=== PATIENT | female | born 1970 | race Caucasian/White ===

== ENCOUNTER 2019-02-08 05:39 | Inpatient (IN) | payer MEDICAID ==
[2019-02-08 06:24] LABS: ABSOLUTE BASOPHILS # (AUTO) 0.3 10^3/uL (0.0-0.2); ABSOLUTE LYMPHOCYTES (AUTO) 0.8 10^3/uL (0.5-4.7); ABSOLUTE MONOCYTES (AUTO) 0.6 10^3/uL (0.1-1.4); ABSOLUTE NEUT (AUTO) 13.2 10^3/uL (1.7-8.2); BASOPHILS % (AUTO) 1.7 % (0-2); EOSINOPHILS % (AUTO) 0.1 % (0-6); HEMATOCRIT 35.5 % (36.0-47.0); HEMOGLOBIN 11.3 g/dL (12.0-15.5); LYMPHOCYTES % (AUTO) 5.2 % (13-45); MEAN CORPUSCULAR HEMOGLOBIN 29.2 pg (27.0-33.4); MEAN CORPUSCULAR HGB CONC 31.8 g/dL (32.0-36.0); MEAN CORPUSCULAR VOLUME 92 fl (80-97); MONOCYTES % (AUTO) 4.3 % (3-13); PLATELET COUNT 354 10^3/uL (150-450); RED BLOOD COUNT 3.85 10^6/uL (3.72-5.28); RED CELL DISTRIBUTION WIDTH 15.4 % (11.5-14.0); SEGMENTED NEUTROPHILS % (AUTO) 88.7 % (42-78); TOTAL CELLS COUNTED % (AUTO) 100 %; WHITE BLOOD COUNT 14.9 10^3/uL (4.0-10.5)
[2019-02-08 06:38] LABS: VENOUS BLOOD BASE EXCESS -4.9 mmol/L; VENOUS BLOOD HCO3 20.5 mmol/L (20-32); VENOUS BLOOD PCO2 39.5 mmHg (35-63); VENOUS BLOOD PH 7.33 (7.30-7.42)
--- NOTE | 2019-02-08 06:41 | EKG REPORT ---
SEVERITY:- BORDERLINE ECG - SINUS TACHYCARDIA LOW VOLTAGE WITH RIGHT AXIS DEVIATION : Confirmed by: Merrick Cain MD 08-Feb-2019 06:40:19
[2019-02-08 07:05] LABS: APPEARANCE,URINE CLEAR; BILIRUBIN,URINE NEGATIVE (NEGATIVE); COLOR,URINE YELLOW; GLUCOSE, URINE >=500 mg/dL (NEGATIVE); KETONES,URINE TRACE mg/dL (NEGATIVE); LEUKOCYTE ESTERASE,URINE NEGATIVE (NEGATIVE); NITRITE,URINE NEGATIVE (NEGATIVE); PROTEIN,URINE >=500 mg/dL (NEGATIVE); URINE SPECIFIC GRAVITY 1.018; UROBILINOGEN,URINE NEGATIVE mg/dL (<2.0)
[2019-02-08 07:11] LABS: ALANINE AMINOTRANSFERASE 36 U/L (9-52); ALBUMIN 2.4 g/dL (3.5-5.0); ALKALINE PHOSPHATASE 137 U/L (38-126); ANION GAP 14 (5-19); ASPARTATE AMINO TRANSFERASE 20 U/L (14-36); BILIRUBIN,DIRECT 0.4 mg/dL (0.0-0.4); BILIRUBIN,TOTAL 0.4 mg/dL (0.2-1.3); BLOOD UREA NITROGEN 36 mg/dL (7-20); CALCIUM 8.4 mg/dL (8.4-10.2); CARBON DIOXIDE 19 mmol/L (22-30); CHLORIDE 104 mmol/L (98-107); POTASSIUM 4.4 mmol/L (3.6-5.0); SODIUM 136.7 mmol/L (137-145); TOTAL PROTEIN 4.7 g/dL (6.3-8.2)
[2019-02-08 07:22] LABS: GLUCOSE 550 mg/dL (75-110)
[2019-02-08] MEDS ORDERED: ZIPRASIDONE MESYLATE INJ/PF 20 MG SDV IM ONE (07:24)
[2019-02-08] MEDS ORDERED: NORMAL SALINE 500 ML IV ONE (07:30)
[2019-02-08] MEDS: INSULIN REG, HUMAN 100 UNIT/ML 3 ML VIAL (PYX) IV ONE ×4 (08:00→13:26)
--- NOTE | 2019-02-08 08:45 | RADIOLOGY REPORT (SQ) ---
EXAM DESCRIPTION: CHEST SINGLE VIEW COMPLETED DATE/TIME: 02/08/2019 8:31 am REASON FOR STUDY: AMS COMPARISON: None. EXAM PARAMETERS: NUMBER OF VIEWS: One view. TECHNIQUE: Single frontal radiographic view of the chest acquired. RADIATION DOSE: NA LIMITATIONS: None. FINDINGS: LUNGS AND PLEURA: No opacities, masses or pneumothorax. No pleural effusion. MEDIASTINUM AND HILAR STRUCTURES: No masses. Contour normal. HEART AND VASCULAR STRUCTURES: Borderline cardiomegaly. Mild vascular prominence. BONES: No acute findings. HARDWARE: Central line. OTHER: No other significant finding. IMPRESSION: BORDERLINE CARDIOMEGALY WITH MILD VASCULAR PROMINENCE. TECHNICAL DOCUMENTATION: JOB ID: [id number] [employer]- All Rights Reserved Reading location - IP/workstation name: [email or web address]
--- NOTE | 2019-02-08 09:03 | RADIOLOGY REPORT (SQ) ---
EXAM DESCRIPTION: CT HEAD WITHOUT COMPLETED DATE/TIME: 02/08/2019 8:52 am REASON FOR STUDY: AMS COMPARISON: None. TECHNIQUE: Axial images acquired through the brain without intravenous contrast. Images reviewed wi th bone, brain and subdural windows. Additional sagittal and coronal reconstructions were generated. Images stored on PACS. All CT scanners at this facility use dose modulation, iterative reconstruction, and/or weight based d osing when appropriate to reduce radiation dose to as low as reasonably achievable (ALARA). [facility]: Dose Right [facility]: CareDose [facility]: Dose Right [facility]: Teradose 4D [facility]: [employer] RADIATION DOSE: CT Rad equipment meets quality standard of care and radiation dose reduction techniq ues were employed. CTDIvol: 53.2 mGy. DLP: 1044 mGy-cm. mGy. LIMITATIONS: None. FINDINGS: VENTRICLES: Normal size and contour. CEREBRUM: No masses. No hemorrhage. No midline shift. No evidence for acute infarction. Normal gra y/white matter differentiation. No areas of low density in the white matter. CEREBELLUM: No masses. No hemorrhage. No alteration of density. No evidence for acute infarction. EXTRAAXIAL SPACES: No fluid collections. No masses. ORBITS AND GLOBE: No intra- or extraconal masses. Normal contour of globe without masses. CALVARIUM: No fracture. PARANASAL SINUSES: No fluid or mucosal thickening. SOFT TISSUES: No mass or hematoma. OTHER: No other significant finding. IMPRESSION: NORMAL BRAIN CT WITHOUT CONTRAST. EVIDENCE OF ACUTE STROKE: NO. COMMENT: Quality ID # [id number]: Final reports with documentation of one or more dose reduction techniques (e.g., Automated exposure control, adjustment of the mA and/or kV according to patient size, use of iterative reconstruction technique) TECHNICAL DOCUMENTATION: JOB ID: [id number] [employer]- All Rights Reserved Reading location - IP/workstation name: [email or web address]
--- NOTE | 2019-02-08 09:25 | RADIOLOGY REPORT (SQ) ---
EXAM DESCRIPTION: CT CHEST WITHOUT COMPLETED DATE/TIME: 02/08/2019 8:52 am REASON FOR STUDY: upper extremity and facial edema COMPARISON: None. TECHNIQUE: CT scan performed of the chest without intravenous contrast. Images reviewed with lung, soft tissue and bone windows. Reconstructed coronal and sagittal MPR images reviewed. All images st ored on PACS. All CT scanners at this facility use dose modulation, iterative reconstruction, and/or weight based d osing when appropriate to reduce radiation dose to as low as reasonably achievable (ALARA). [facility]: Dose Right [facility]: CareDose [facility]: Dose Right [facility]: Teradose 4D [facility]: [employer] RADIATION DOSE: CT Rad equipment meets quality standard of care and radiation dose reduction techniq ues were employed. CTDIvol: 14.4 mGy. DLP: 570 mGy-cm. mGy. LIMITATIONS: No technical limitations. FINDINGS: LUNGS AND PLEURA: Small pleural effusions bilaterally, volume less than 500 cc. Mild inte rstitial edema interlobular septal thickening. No consolidation. HILAR AND MEDIASTINAL STRUCTURES: No identified masses or abnormal nodes. No obvious aneurysm. HEART AND VASCULAR STRUCTURES: Cardiomegaly. No aneurysm. No pericardial effusion. UPPER ABDOMEN: Body wall edema. Limited exam. THYROID AND OTHER SOFT TISSUES: No masses. No adenopathy. BONES: No significant finding. HARDWARE: None in the chest. OTHER: Right central line tip in the cavoatrial junction. IMPRESSION: Pulmonary edema and anasarca. No consolidation. TECHNICAL DOCUMENTATION: JOB ID: [id number] Quality ID # [id number]: Final reports with documentation of one or more dose reduction techniques (e.g., Au tomated exposure control, adjustment of the mA and/or kV according to patient size, use of iterative reconstruction technique) 2010 [employer]- All Rights Reserved Reading location - IP/workstation name: [email or web address]
[2019-02-08 10:07] LABS: URINE AMPHETAMINES SCREEN NEGATIVE; URINE BARBITURATES SCREEN NEGATIVE; URINE BENZODIAZEPINES SCREEN NEGATIVE; URINE COCAINE SCREEN NEGATIVE; URINE MARIJUANA (THC) SCREEN NEGATIVE; URINE METHADONE SCREEN NEGATIVE; URINE PHENCYCLIDINE SCREEN NEGATIVE
[2019-02-08] MEDS ORDERED: GLUCAGON,HUMAN RECOMB 1 MG INJ IM PRN ×2 (12:00→17:33)
[2019-02-08] MEDS ORDERED: INSULIN, REGULAR 100 UNIT/100 ML NORMAL SALINE IV PRN ×2 (12:00)
[2019-02-08] MEDS ORDERED: DEXTROSE 40% GEL 15 GM TUBE PO PRN ×3 (12:00→17:33)
[2019-02-08] MEDS ORDERED: DEXTROSE 50%-WATER SYRINGE 25 GM/50 ML DOSE IV PRN (12:00)
[2019-02-08] MEDS ORDERED: DEXTROSE 40% GEL 15 GM TUBE X 2 PO PRN (12:00)
[2019-02-08] MEDS ORDERED: DEXTROSE 50%-WATER SYRINGE 12.5 GM/25 ML DOSE IV PRN (12:00)
--- NOTE | 2019-02-08 12:12 | ER Document Report ---
ED General - General Stated Complaint: COMBATIVE Time Seen by Provider: 02/08/19 05:48 TRAVEL OUTSIDE OF THE [place] IN LAST 30 DAYS: No - HPI Notes: Patient is a 48-year-old female who presents to the emergency department. She is a known history of ESRD, on dialysis Friday and Friday, as well as diabetes. She has not been seen here in our facility in the past. Her friend called 911 because of altered mental status. I did not get this history until later. Evidently the patient's friend states she was acting normally on Friday night. She actually walked 2 miles, was compliant with her medications. Yesterday the patient friend tried to wake her. She was unable to wake her. She seemed to be groaning intermittently. She laid down throughout the course of the day. She seemed to be getting edematous so she propped her up. When she continued to act this way this morning she called 911. According to the friend, she has not missed any dialysis. The patient did not get any insulin yesterday as the patient's friend was concerned she could become hypoglycemic and not be responsive enough to eat or drink. No known traumas. - Related Data Allergies/Adverse Reactions: shellfish derived Allergy (Verified 02/08/19 11:25) Past Medical History - General Information source: Friend - Social History Smoking Status: Current Every Day Smoker Family History: Reviewed & Not Pertinent Patient has suicidal ideation: No Patient has homicidal ideation: No - Past Medical History Cardiac Medical History: Reports: Hx Hypertension Neurological Medical History: Reports: Hx Cerebrovascular Accident Endocrine Medical History: Reports: Hx Diabetes Mellitus Type 2 Renal/ Medical History: Reports: Hx End Stage Renal Disease. Denies: Hx Peritoneal Dialysis Review of Systems - Review of Systems -: Yes ROS unobtainable due to patient's medical condition Physical Exam - Vital signs Vitals: Pulse Ox 98 02/08/19 06:05 - Notes Notes: Patient is a 48-year-old female who appears much older than her stated age. She is restrained when I come into the room. She is intermittently combative and yells out and moans. Head is normocephalic. She does have significant periorbital and scleral edema. Pupils are equal and round, reactive to light although slightly sluggish. Oral mucosa slightly dry. Heart is tachycardic with normal S1-S2, lungs are clear to oscillation bilaterally. Abdomen soft appears nontender with no active bowel sounds. Patient has pitting edema to the hands, chest wall, abdominal wall. She has no lower extremity edema. Patient has no gross facial asymmetry. She moves all 4 extremities spontaneously. She will follow commands intermittently. GCS is 10. Course - Re-evaluation Re-evalutation: 02/08/19 12:09 Patient presented emergency department for evaluation. She had initial labs as placed by the nurse practitioner. Additional labs are ordered. Laboratory investigations were remarkable for a significantly elevated glucose, only mildly low bicarb. Her venous pH was normal. Her serum osmolality was ordered and found to be high. I am concerned about the possibility of HHS in this patient. I am concerned also, however, about giving her too many fluids in light of this being a dialysis patient. She is due for dialysis today. She was given a 500 cc bolus. She was started on insulin drip. She was administered Geodon in an effort to calm her so the CT scans of the head to be ordered. Shortly after the need for restraints was reassessed and the patient was able to have them removed. Finally a friend came to the department was able to fill in the blanks in some of her history. Chest x-ray was ordered and found to be largely unremarkable as well. Because her edema seemed to be localized to the upper half of the body, I was concerned about the possibility of some sort of mass- effect decreasing her circulation. CT scan of the chest was ordered and again showed only some edema. Patient is maintained on the insulin drip. She is remained stable. I spoke with Dr. Dumont, who accepted the patient, and asked that I speak with CONNER Baker regarding this admission. She asked that I verify that we had a dialysis bed. I was finally able to speak to Dr. Alexander, who verified that he could see the patient in consult for dialysis. I conveyed this information to the nurse practitioner, who will admit the patient for further care. 02/08/19 12:12 - Vital Signs Vital signs: Temp Pulse Resp BP Pulse Ox 97.6 F 16 155/72 H 97 02/08/19 09:01 02/08/19 09:01 02/08/19 09:01 02/08/19 09:01 - Laboratory Result Diagrams: 02/08/19 06:11 02/08/19 06:11 Laboratory results interpreted by me: 02/08/19 02/08/19 02/08/19 06:11 06:11 06:11 WBC 14.9 H Hgb 11.3 L Hct 35.5 L MCHC 31.8 L RDW 15.4 H Seg Neutrophils % 88.7 H Lymphocytes % 5.2 L Absolute Neutrophils 13.2 H Absolute Basophils 0.3 H Sodium 136.7 L Carbon Dioxide 19 L BUN 36 H Creatinine 2.90 H Est GFR ( Amer) 21 L Est GFR (Non-Af Amer) 17 L Glucose 550 H* POC Glucose Serum Osmolality Alkaline Phosphatase 137 H Ammonia < 8.7 L Total Protein 4.7 L Albumin 2.4 L Urine Protein Urine Glucose (UA) Urine Ketones 02/08/19 02/08/19 02/08/19 06:11 06:11 07:55 WBC Hgb Hct MCHC RDW Seg Neutrophils % Lymphocytes % Absolute Neutrophils Absolute Basophils Sodium Carbon Dioxide BUN Creatinine Est GFR ( Amer) Est GFR (Non-Af Amer) Glucose POC Glucose > 550 H* Serum Osmolality 322 H Alkaline Phosphatase Ammonia Total Protein Albumin Urine Protein >=500 H Urine Glucose (UA) >=500 H Urine Ketones TRACE H 02/08/19 02/08/19 02/08/19 09:04 10:03 11:10 WBC Hgb Hct MCHC RDW Seg Neutrophils % Lymphocytes % Absolute Neutrophils Absolute Basophils Sodium Carbon Dioxide BUN Creatinine Est GFR ( Amer) Est GFR (Non-Af Amer) Glucose POC Glucose 535 H* 457 H* 412 H* Serum Osmolality Alkaline Phosphatase Ammonia Total Protein Albumin Urine Protein Urine Glucose (UA) Urine Ketones - Diagnostic Test Radiology reviewed: Reports reviewed Radiology results interpreted by me: 02/08/19 12:11 Chest X-Ray 02/08/19 05:46 IMPRESSION: BORDERLINE CARDIOMEGALY WITH MILD VASCULAR PROMINENCE. Head CT 02/08/19 05:46 IMPRESSION: NORMAL BRAIN CT WITHOUT CONTRAST. EVIDENCE OF ACUTE STROKE: NO. Chest CT 02/08/19 08:35 IMPRESSION: Pulmonary edema and anasarca. No consolidation. - EKG Interpretation by Me Additional EKG results interpreted by me: 02/08/19 12:11 Sinus tachycardia with a rate of 103 bpm. Normal axis and intervals, nonspecific ST changes, but no acute changes concerning for ischemia or infarction. There are no old studies for comparison. Critical Care Note - Critical Care Note Total time excluding time spent on procedures (mins): 45 Discharge - Discharge Clinical Impression: Altered mental status, Diabetes mellitus with hyperosmolarity without hyperglycemic hyperosmolar nonketotic coma Condition: Stable Disposition: ADMITTED INPATIENT Admitting Provider: Tim (Hospitalist) - [facility] Baker admitting Unit Admitted: [facility]
[2019-02-08] MEDS ORDERED: ACETAMINOPHEN 650 MG SUPP.RECT PR PRN (12:14)
[2019-02-08] MEDS ORDERED: NORMAL SALINE 100 ML with INSULIN REGULAR, HUMAN 100 UNIT IV PRN ×2 (13:53)
[2019-02-08] MEDS ORDERED: NORMAL SALINE 1000 ML 1,000 ML IV PRN (13:53)
--- NOTE | 2019-02-08 14:41 | PDOC H&P ---
History of Present Illness Admission Date/PCP: 02/08/19 12:39 Patient complains of: AMS History of Present Illness: LIONEL WICK is a 48 year old female with a PMH of CVA x2, ESRD (MWF), DM, HTN, neuropathy. She was brought to the emergency department by her friend for altered mental status. According to the patient's friend, Joel, the patient was last seen at her baseline 2 nights ago. Yesterday, Joel attempted to wake up the patient but she was lethargic and refused to get out of bed. Since the patient will get out of bed and was not eating, Joel did not give the patient her insulin. When the patient would not wake up this morning, this prompted Joel to call EMS. Of note, the patient has recently been in and out of the hospital, always treated at [facility]. She has been unable to stay out of the hospital for more than 30 days at a time. She is typically admitted for uncontrolled diabetes or hemodialysis noncompliance. Additionally, she recently had her second stroke and was hospitalized at [facility]. Upon arrival to the emergency department, the patient is very combative. She is not able to answer questions appropriately. BP 180/92 HR 92 T 97.5 SPO2 99. EKG shows NSR, no evidence of infarction or ischemia. Head CT WNL. Laboratory studies reveal leukocytosis (WBC 14), hyperglycemia (BG 550), mild hyponatremia (NA 134), elevated serum osmolality (OSM 322), elevated creatinine (2.9 unknown baseline). CXR showed b/l pleural effusions, CT chest (non-con) was obtained and showed small bilateral pleural effusions. The patient was started on an insulin gtt for her HHNK. ED MD confirmed with unemployment insurance director, Dr. Alexander, that the patient would be able to receive dialysis today. Past Medical History Cardiac Medical History: Reports: Hypertension Neurological Medical History: Reports: Ischemic CVA Endocrine Medical History: Reports: Diabetes Mellitus Type 2 Renal/ Medical History: Reports: End Stage Renal Disease Social History Information Source: Relative - Daughter, Manolo, Friend - Joel Smoking Status: Current Every Day Smoker Past Social History Note: FRIEND JOEL [phone] DAUGHTER MANOLO (LIVES IN [place]) [phone] Family History Family History: Reviewed & Not Pertinent Parental Family History Reviewed: No Children Family History Reviewed: Unknown Sibling(s) Family History Reviewed.: Unknown Medication/Allergy Home Medications: Calcium Acetate [Phoslo 667 Mg Capsule] 1,334 mg PO MEALS 02/08/19 Carvedilol [Coreg 25 mg Tablet] 25 mg PO Q12 02/08/19 Clonidine HCl [Catapres 0.1 mg Tablet] 0.1 mg PO Q8 02/08/19 Duloxetine HCl [Cymbalta 30 mg Capsule.dr] 30 mg PO Q12 02/08/19 Furosemide [Lasix 40 mg Tablet] 40 mg PO BID@08,1300 02/08/19 Gabapentin [Neurontin 300 mg Capsule] 300 mg PO Q12 02/08/19 Hydralazine HCl [Apresoline 50 mg Tablet] 100 mg PO Q12 02/08/19 Insulin Aspart [Novolog Flexpen] 5 unit SUBCUT MEALS 02/08/19 Insulin Glargine,Hum.rec.anlog [Lantus Insulin 100 Unit/1 ml 10 ml] 15 unit SUBCUT DAILY 02/08/19 Lisinopril [Prinivil 10 mg Tablet] 20 mg PO DAILY 02/08/19 Promethazine HCl [Phenergan 25 mg Tablet] 12.5 mg PO Q6HP PRN 02/08/19 Allergies/Adverse Reactions: Penicillins Allergy (Verified 02/08/19 14:17) Hives shellfish derived Allergy (Verified 02/08/19 11:25) Sulfa (Sulfonamide Antibiotics) Allergy (Verified 02/08/19 14:17) Hives Physical Exam Vital Signs: Temp Pulse Resp BP Pulse Ox 98.2 F 15 141/72 H 97 02/08/19 12:01 02/08/19 13:00 02/08/19 12:01 02/08/19 13:00 Intake & Output 02/07/19 02/08/19 02/09/19 06:59 06:59 06:59 Intake Total 540 Balance 540 Results Laboratory Results: 02/08/19 06:11 02/08/19 06:11 02/08/19 02/08/19 02/08/19 06:11 06:11 06:11 WBC 14.9 H RBC 3.85 Hgb 11.3 L Hct 35.5 L MCV 92 MCH 29.2 MCHC 31.8 L RDW 15.4 H Plt Count 354 Seg Neutrophils % 88.7 H Lymphocytes % 5.2 L Monocytes % 4.3 Eosinophils % 0.1 Basophils % 1.7 Absolute Neutrophils 13.2 H Absolute Lymphocytes 0.8 Absolute Monocytes 0.6 Absolute Eosinophils 0.0 Absolute Basophils 0.3 H VBG pH VBG pCO2 VBG HCO3 VBG Base Excess Sodium 136.7 L Potassium 4.4 Chloride 104 Carbon Dioxide 19 L Anion Gap 14 BUN 36 H Creatinine 2.90 H Est GFR ( Amer) 21 L Est GFR (Non-Af Amer) 17 L Glucose 550 H* Serum Osmolality Lactic Acid 1.3 Calcium 8.4 Total Bilirubin 0.4 AST 20 ALT 36 Alkaline Phosphatase 137 H Ammonia Total Protein 4.7 L Albumin 2.4 L Urine Color Urine Appearance Urine pH Ur Specific [place] Urine Protein Urine Glucose (UA) Urine Ketones Urine Blood Urine Nitrite Ur Leukocyte Esterase Urine WBC (Auto) Urine RBC (Auto) 02/08/19 02/08/19 02/08/19 06:11 06:11 06:11 WBC RBC Hgb Hct MCV MCH MCHC RDW Plt Count Seg Neutrophils % Lymphocytes % Monocytes % Eosinophils % Basophils % Absolute Neutrophils Absolute Lymphocytes Absolute Monocytes Absolute Eosinophils Absolute Basophils VBG pH 7.33 VBG pCO2 39.5 VBG HCO3 20.5 VBG Base Excess -4.9 Sodium Potassium Chloride Carbon Dioxide Anion Gap BUN Creatinine Est GFR ( Amer) Est GFR (Non-Af Amer) Glucose Serum Osmolality Lactic Acid Calcium Total Bilirubin AST ALT Alkaline Phosphatase Ammonia < 8.7 L Total Protein Albumin Urine Color YELLOW Urine Appearance CLEAR Urine pH 6.0 Ur Specific [place] 1.018 Urine Protein >=500 H Urine Glucose (UA) >=500 H Urine Ketones TRACE H Urine Blood NEGATIVE Urine Nitrite NEGATIVE Ur Leukocyte Esterase NEGATIVE Urine WBC (Auto) 5 Urine RBC (Auto) 4 02/08/19 06:11 WBC RBC Hgb Hct MCV MCH MCHC RDW Plt Count Seg Neutrophils % Lymphocytes % Monocytes % Eosinophils % Basophils % Absolute Neutrophils Absolute Lymphocytes Absolute Monocytes Absolute Eosinophils Absolute Basophils VBG pH VBG pCO2 VBG HCO3 VBG Base Excess Sodium Potassium Chloride Carbon Dioxide Anion Gap BUN Creatinine Est GFR ( Amer) Est GFR (Non-Af Amer) Glucose Serum Osmolality 322 H Lactic Acid Calcium Total Bilirubin AST ALT Alkaline Phosphatase Ammonia Total Protein Albumin Urine Color Urine Appearance Urine pH Ur Specific [place] Urine Protein Urine Glucose (UA) Urine Ketones Urine Blood Urine Nitrite Ur Leukocyte Esterase Urine WBC (Auto) Urine RBC (Auto) 02/08/19 06:11 Troponin I 0.020 Impressions: Chest X-Ray 02/08/19 05:46 IMPRESSION: BORDERLINE CARDIOMEGALY WITH MILD VASCULAR PROMINENCE. Head CT 02/08/19 05:46 IMPRESSION: NORMAL BRAIN CT WITHOUT CONTRAST. EVIDENCE OF ACUTE STROKE: NO. Chest CT 02/08/19 08:35 IMPRESSION: Pulmonary edema and anasarca. No consolidation. Assessment and Plan - Diagnosis (1) Diabetes mellitus with hyperosmolarity without hyperglycemic hyperosmolar nonketotic coma Is this a current diagnosis for this admission?: Yes Plan: PMH DM type 2 Noncompliance with medications over the weekend Presented with HHNK - BG 550 Osm 322 Anion Gap 14, no acidosis or ketosis Initially treated with insulin gtt., weaned off once patient's BG <200 Patients AMS could be secondary to hyperosmolar coma Every 6 hours Accu-Cheks now on Humalog sliding scale insulin Daily long acting insulin once medication reconciliation is complete (2) Altered mental status Qualifiers: Altered mental status type: coma Is this a current diagnosis for this admission?: Yes Plan: GCS 7: [id number] Possible hyperosmolar coma vs stroke vs meningitis CT negative MRI pending If normal, consider lumbar puncture (3) HTN (hypertension) Is this a current diagnosis for this admission?: Yes Plan: PMH HTN Unknown oral antihypertensives, pending medication reconciliation IV hydralazine PRN SBP>170 IV Lopressor as needed SBP>170 or HR>120 (4) Leukocytosis Is this a current diagnosis for this admission?: Yes Plan: No source of infection at this time CXR & CT shows bilateral pleural effusions UA negative for UTI (+) Leukocytosis. 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 Patient receives hemodialysis MWF Plan for hemodialysis today Avoid nephrotoxic medications - Time Time Spent with patient: 15-24 minutes Medications reviewed and adjusted accordingly: Yes Anticipated discharge: Other - Unknown Within: Other - Unknown - Inpatient Certification Based on my medical assessment, after consideration of the patient's comorbidities, presenting symptoms, or acuity I expect that the services needed warrant INPATIENT care.: Yes I certify that my determination is in accordance with my understanding of Medicare's requirements for reasonable and necessary INPATIENT services [42 CFR 412.3e].: Yes Medical Necessity: Need Close Monitoring Due to Risk of Patient Decompensation, Need for Neurological Checks, Risk of Complication if Not Cared For in Hospital - Plan Summary Plan Summary: Unfortunately, not much is known about the patient's medical history since she always receives medical treatment at [facility]. Pharmacy is currently working on medication reconciliation. Requested records from [facility].
[2019-02-08] MEDS ORDERED: DEXTROSE 50%-WATER 25 GM/50 ML DISP.SYRIN IV PRN ×2 (17:33)
[2019-02-08] MEDS: INSULIN LISPRO 100 UNIT/ML 3 ML VIAL SUBCUT SCH (18:17)
[2019-02-08 20:20] LABS: ANION GAP 7 (5-19); BLOOD UREA NITROGEN 23 mg/dL (7-20); CALCIUM 8.3 mg/dL (8.4-10.2); CARBON DIOXIDE 25 mmol/L (22-30); CHLORIDE 105 mmol/L (98-107); GLUCOSE 236 mg/dL (75-110); POTASSIUM 4.5 mmol/L (3.6-5.0); SODIUM 137.1 mmol/L (137-145)
[2019-02-08] MEDS ORDERED: METOPROLOL TARTRATE PF/INJ 5 MG/5 ML SDV IV PRN (20:20)
[2019-02-08] MEDS ORDERED: CHLORPROMAZINE HCL INJ 25 MG/1 ML AMPULE ONE (21:27)
[2019-02-08] MEDS: CHLORPROMAZINE HCL INJ 25 MG/1 ML AMPULE IV PRN (21:30)
[2019-02-08] MEDS ORDERED: HALOPERIDOL LACTATE INJ 5 MG/1 ML VIAL ONE (22:35)
[2019-02-08] MEDS: HYDRALAZINE HCL INJ/PF 20 MG/1 ML SDV IV PRN (22:37)
[2019-02-08] MEDS: CLONIDINE HCL 0.1 MG TABLET PO SCH (22:40)
[2019-02-08] MEDS: HYDRALAZINE HCL 50 MG TABLET PO SCH (22:40)
[2019-02-08] MEDS: CARVEDILOL 12.5 MG TABLET PO SCH (22:41)
[2019-02-08] MEDS: GABAPENTIN 300 MG CAPSULE PO SCH (22:41)
[2019-02-09] MEDS: INSULIN LISPRO 100 UNIT/ML 3 ML VIAL SUBCUT SCH ×5 (00:34→18:51)
[2019-02-09] MEDS ORDERED: HALOPERIDOL LACTATE INJ 5 MG/1 ML VIAL IV PRN (00:39)
[2019-02-09] MEDS: HYDRALAZINE HCL INJ/PF 20 MG/1 ML SDV IV PRN (03:43)
[2019-02-09] MEDS ORDERED: CHLORPROMAZINE HCL INJ 25 MG/1 ML AMPULE ONE (05:34)
[2019-02-09] MEDS: CHLORPROMAZINE HCL INJ 25 MG/1 ML AMPULE IV PRN (05:55)
[2019-02-09] MEDS: CLONIDINE HCL 0.1 MG TABLET PO SCH ×3 (06:00→22:07)
[2019-02-09 07:12] LABS: ABSOLUTE BASOPHILS # (AUTO) 0.2 10^3/uL (0.0-0.2); ABSOLUTE EOSINOPHILS # (AUTO) 0.1 10^3/uL (0.0-0.6); ABSOLUTE LYMPHOCYTES (AUTO) 1.9 10^3/uL (0.5-4.7); ABSOLUTE MONOCYTES (AUTO) 1.3 10^3/uL (0.1-1.4); ABSOLUTE NEUT (AUTO) 10.3 10^3/uL (1.7-8.2); BASOPHILS % (AUTO) 1.3 % (0-2); EOSINOPHILS % (AUTO) 0.4 % (0-6); HEMATOCRIT 32.5 % (36.0-47.0); HEMOGLOBIN 10.4 g/dL (12.0-15.5); LYMPHOCYTES % (AUTO) 13.9 % (13-45); MEAN CORPUSCULAR HEMOGLOBIN 28.7 pg (27.0-33.4); MEAN CORPUSCULAR HGB CONC 32.2 g/dL (32.0-36.0); MEAN CORPUSCULAR VOLUME 89 fl (80-97); MONOCYTES % (AUTO) 9.5 % (3-13); PLATELET COUNT 370 10^3/uL (150-450); RED BLOOD COUNT 3.64 10^6/uL (3.72-5.28); RED CELL DISTRIBUTION WIDTH 15.1 % (11.5-14.0); SEGMENTED NEUTROPHILS % (AUTO) 74.9 % (42-78); TOTAL CELLS COUNTED % (AUTO) 100 %; WHITE BLOOD COUNT 13.7 10^3/uL (4.0-10.5)
[2019-02-09 07:27] LABS: ALANINE AMINOTRANSFERASE 31 U/L (9-52); ALBUMIN 2.5 g/dL (3.5-5.0); ALKALINE PHOSPHATASE 120 U/L (38-126); ANION GAP 10 (5-19); ASPARTATE AMINO TRANSFERASE 24 U/L (14-36); BILIRUBIN,DIRECT 0.4 mg/dL (0.0-0.4); BILIRUBIN,TOTAL 0.4 mg/dL (0.2-1.3); BLOOD UREA NITROGEN 31 mg/dL (7-20); CALCIUM 8.5 mg/dL (8.4-10.2); CARBON DIOXIDE 24 mmol/L (22-30); CHLORIDE 105 mmol/L (98-107); GLUCOSE 240 mg/dL (75-110); PHOSPHORUS 4.9 mg/dL (2.5-4.5); POTASSIUM 3.7 mmol/L (3.6-5.0); TOTAL PROTEIN 5.2 g/dL (6.3-8.2)
[2019-02-09] MEDS ORDERED: LORAZEPAM INJ 2 MG/1 ML VIAL ONE ×2 (09:58→15:39)
[2019-02-09] MEDS ORDERED: INSULIN GLARGINE,HUM.REC.ANLOG 1,000 UNIT/10 ML VIAL SUBCUT SCH (10:00)
--- NOTE | 2019-02-09 10:20 | PDOC CONSULTATION ---
Consultation Consult Date: 02/08/19 Provider Consulted: Anival LOCKE Consult reason:: Urgent hemodialysis in the setting of congestive heart failure. History of Present Illness Admission Date/PCP: 02/08/19 12:39 History of Present Illness: LIONEL WICK is a 48 year old female who apparently dialyzes in [place] was admitted with history of altered mental status. There is apparently a long- standing history of diabetes, hypertension and recent ESRD just started on hemodialysis 2 to 3 weeks ago at [place] as per chart and a history gained by talking to her dialysis clinic in [place]. Chart review was done as well. Her friend found her not very responsive at home and called 911. Blood sugars were found to be high suggestive of HNK. She has been in and out of hospitals multiple times recently. She is also had a history of noncompliance with her dialysis treatments. Patient was very combative and and agitated after initial evaluations in the ER. She had to be sedated for doing a CT of the head and chest. Currently she is being seen while undergoing dialysis. She is sedated and is in deep sleep mode. She just moans when you shake her. Labs and medications were reviewed. Discussions were done with the treating dialysis nurse Gena. Has a Rossi catheter that shows small amounts of urine. Labs shows creatinine of 2.9. Chest x-ray is reviewed shows evidence of congestive heart failure. She has got anasarca especially periorbital and pedal. Past Medical History Cardiac Medical History: Reports: Hypertension-primary Endocrine Medical History: Reports: Diabetes Mellitus Type 2 Renal/ Medical History: Reports: End Stage Renal Disease, Secondary Hyperparathyroidism Hematology Medical History: Reports Anemia of Chronic Kidney Disease Social History Smoking Status: Current Every Day Smoker Family History Parental Family History Reviewed: No - Unable to obtain as patient is sedated. Children Family History Reviewed: No Sibling(s) Family History Reviewed.: No Medication/Allergy Home Medications: Calcium Acetate [Phoslo 667 Mg Capsule] 1,334 mg PO MEALS 02/08/19 Carvedilol [Coreg 25 mg Tablet] 25 mg PO Q12 02/08/19 Clonidine HCl [Catapres 0.1 mg Tablet] 0.1 mg PO Q8 02/08/19 Duloxetine HCl [Cymbalta 30 mg Capsule.dr] 30 mg PO Q12 02/08/19 Furosemide [Lasix 40 mg Tablet] 40 mg PO BID@08,1300 02/08/19 Gabapentin [Neurontin 300 mg Capsule] 300 mg PO Q12 02/08/19 Hydralazine HCl [Apresoline 50 mg Tablet] 100 mg PO Q12 02/08/19 Insulin Aspart [Novolog Flexpen] 5 unit SUBCUT MEALS 02/08/19 Insulin Glargine,Hum.rec.anlog [Lantus Insulin 100 Unit/1 ml 10 ml] 15 unit SUBCUT DAILY 02/08/19 Lisinopril [Prinivil 10 mg Tablet] 20 mg PO DAILY 02/08/19 Promethazine HCl [Phenergan 25 mg Tablet] 12.5 mg PO Q6HP PRN 02/08/19 Allergies/Adverse Reactions: Penicillins Allergy (Verified 02/08/19 14:17) Hives shellfish derived Allergy (Verified 02/08/19 11:25) Sulfa (Sulfonamide Antibiotics) Allergy (Verified 02/08/19 14:17) Hives Review of Systems ROS unobtainable: Due to mental status Physical Exam Vital Signs: Temp Pulse Resp BP Pulse Ox 98.2 F 15 141/72 H 97 02/08/19 12:01 02/08/19 13:00 02/08/19 12:01 02/08/19 13:00 Intake & Output 02/07/19 02/08/19 02/09/19 06:59 06:59 06:59 Intake Total 552 Balance 552 General appearance: PRESENT: no acute distress Exam: Patient is currently sedated and therefore unable to cooperate with the physical exam. Eye exam: PRESENT: EOMI, PERRLA. ABSENT: nystagmus Ear exam: PRESENT: normal external ear exam Mouth exam: PRESENT: neck supple Neck exam: ABSENT: lymphadenopathy, meningismus, tenderness, thyromegaly, tracheal deviation Respiratory exam: PRESENT: clear to auscultation adriana, crackles, rhonchi - Scattered rhonchi suggestive of possible aspiration or COPD., symmetrical. ABSENT: stridor Cardiovascular exam: PRESENT: +S1, +S2 GI/Abdominal exam: PRESENT: normal bowel sounds, soft. ABSENT: distended, organomegaly, tenderness Extremities exam: PRESENT: +1 edema Neurological exam: PRESENT: altered Skin exam: ABSENT: cyanosis, erythema, mottled, rash Results Laboratory Results: 02/08/19 06:11 02/08/19 06:11 02/08/19 02/08/19 02/08/19 06:11 06:11 06:11 WBC 14.9 H RBC 3.85 Hgb 11.3 L Hct 35.5 L MCV 92 MCH 29.2 MCHC 31.8 L RDW 15.4 H Plt Count 354 Seg Neutrophils % 88.7 H Lymphocytes % 5.2 L Monocytes % 4.3 Eosinophils % 0.1 Basophils % 1.7 Absolute Neutrophils 13.2 H Absolute Lymphocytes 0.8 Absolute Monocytes 0.6 Absolute Eosinophils 0.0 Absolute Basophils 0.3 H VBG pH VBG pCO2 VBG HCO3 VBG Base Excess Sodium 136.7 L Potassium 4.4 Chloride 104 Carbon Dioxide 19 L Anion Gap 14 BUN 36 H Creatinine 2.90 H Est GFR ( Amer) 21 L Est GFR (Non-Af Amer) 17 L Glucose 550 H* Serum Osmolality Lactic Acid 1.3 Calcium 8.4 Total Bilirubin 0.4 AST 20 ALT 36 Alkaline Phosphatase 137 H Ammonia Total Protein 4.7 L Albumin 2.4 L Urine Color Urine Appearance Urine pH Ur Specific [place] Urine Protein Urine Glucose (UA) Urine Ketones Urine Blood Urine Nitrite Ur Leukocyte Esterase Urine WBC (Auto) Urine RBC (Auto) 02/08/19 02/08/19 02/08/19 06:11 06:11 06:11 WBC RBC Hgb Hct MCV MCH MCHC RDW Plt Count Seg Neutrophils % Lymphocytes % Monocytes % Eosinophils % Basophils % Absolute Neutrophils Absolute Lymphocytes Absolute Monocytes Absolute Eosinophils Absolute Basophils VBG pH 7.33 VBG pCO2 39.5 VBG HCO3 20.5 VBG Base Excess -4.9 Sodium Potassium Chloride Carbon Dioxide Anion Gap BUN Creatinine Est GFR ( Amer) Est GFR (Non-Af Amer) Glucose Serum Osmolality Lactic Acid Calcium Total Bilirubin AST ALT Alkaline Phosphatase Ammonia < 8.7 L Total Protein Albumin Urine Color YELLOW Urine Appearance CLEAR Urine pH 6.0 Ur Specific [place] 1.018 Urine Protein >=500 H Urine Glucose (UA) >=500 H Urine Ketones TRACE H Urine Blood NEGATIVE Urine Nitrite NEGATIVE Ur Leukocyte Esterase NEGATIVE Urine WBC (Auto) 5 Urine RBC (Auto) 4 02/08/19 06:11 WBC RBC Hgb Hct MCV MCH MCHC RDW Plt Count Seg Neutrophils % Lymphocytes % Monocytes % Eosinophils % Basophils % Absolute Neutrophils Absolute Lymphocytes Absolute Monocytes Absolute Eosinophils Absolute Basophils VBG pH VBG pCO2 VBG HCO3 VBG Base Excess Sodium Potassium Chloride Carbon Dioxide Anion Gap BUN Creatinine Est GFR ( Amer) Est GFR (Non-Af Amer) Glucose Serum Osmolality 322 H Lactic Acid Calcium Total Bilirubin AST ALT Alkaline Phosphatase Ammonia Total Protein Albumin Urine Color Urine Appearance Urine pH Ur Specific [place] Urine Protein Urine Glucose (UA) Urine Ketones Urine Blood Urine Nitrite Ur Leukocyte Esterase Urine WBC (Auto) Urine RBC (Auto) 02/08/19 06:11 Troponin I 0.020 Impressions: Chest X-Ray 02/08/19 05:46 IMPRESSION: BORDERLINE CARDIOMEGALY WITH MILD VASCULAR PROMINENCE. Head CT 02/08/19 05:46 IMPRESSION: NORMAL BRAIN CT WITHOUT CONTRAST. EVIDENCE OF ACUTE STROKE: NO. Chest CT 02/08/19 08:35 IMPRESSION: Pulmonary edema and anasarca. No consolidation. Assessment & Plan - Diagnosis (1) Type 2 diabetes mellitus with hyperosmolar nonketotic hyperglycemia Plan: Patient apparently is very noncompliant long-standing complicated diabetic who was presented with nonketotic hyperosmolar state. Currently being treated appropriately. Need to exclude possibility of CVA/IL and other precipitating causes. (2) Congestive heart failure Plan: Patient presents with early congestive heart failure. Patient has got history of CKD stage IV/V and apparently has been begun on dialysis at [facility]. Most likely history is congestive heart failure/fluid overload as the reason behind her initiation of hemodialysis. We will try to obtain notes to verify the indication for her being on dialysis. Currently she is being dialyzed because of her presenting status of early congestive heart failure. Will remove between 3 and 4 L as tolerated. See response to dialysis. Monitor labs. (3) CKD (chronic kidney disease) stage 4, GFR 15-29 ml/min Is this a current diagnosis for this admission?: Yes Plan: Patient is got CKD stage IV/V CKD secondary to diabetic nephropathy. She has a large amounts of proteinuria and will try to quantify that which I believe he would be nephrotic. Obviously patient is still has got both central and peripheral fluid overload and possibly has been the reason for initiation of hemodialysis. The need to see if he can obtain her previous echo done at [facility]. Obviously her presentation of congestive heart failure indicates that she needs to be risk stratified cardiac cavazos and to be ruled out for acute IL.Patient currently being seen on dialysis. Obviously she is been sedated and is very hard to wake her up. She is undergoing dialysis without any issues. Dialysis is being supervised to ensure safe and smooth procedure. Dialysis orders were reviewed and discussed with the treating dialysis nurse. Plan to remove it in 3 and 4 L as tolerated. (4) Anasarca associated with disorder of kidney Plan: Most likely secondary to diabetic nephropathy/CKD. Quantify. (5) Nephrotic syndrome Plan: Looks like on the urine analysis. We will go ahead and quantify. (6) Altered mental status Qualifiers: Altered mental status type: coma Is this a current diagnosis for this admission?: Yes Plan: Most likely secondary to her hyperosmolar nonketotic state. However because of the leukocytosis infectious etiologies needs to be considered.Treatment initiated by hospitalist. (7) HTN (hypertension) Is this a current diagnosis for this admission?: Yes Plan: See response to dialysis. Monitor.
[2019-02-09] MEDS ORDERED: LORAZEPAM INJ 2 MG/1 ML VIAL IV ONE (10:30)
[2019-02-09 10:33] LABS: ARTERIAL BLOOD BASE EXCESS 2.4 mmol/L; ARTERIAL BLOOD H2CO3 1.28 mmol/L (1.05-1.35); ARTERIAL BLOOD HCO3 27.1 mmol/L (20-24); ARTERIAL BLOOD O2 SATURATION 93.9 % (94-98); ARTERIAL BLOOD PCO2 42.5 mmHg (35-45); ARTERIAL BLOOD PH 7.42 (7.35-7.45); ARTERIAL BLOOD PO2 67.9 mmHg (80-100); ARTERIAL BLOOD TOTAL CO2 28.4 mmol/L (21-25)
[2019-02-09] MEDS: CALCIUM ACETATE 667 MG CAPSULE PO SCH ×3 (10:38→17:09)
[2019-02-09] MEDS: FUROSEMIDE 40 MG TABLET PO SCH ×2 (10:38→13:54)
[2019-02-09] MEDS: HYDRALAZINE HCL 50 MG TABLET PO SCH ×2 (10:39→22:07)
[2019-02-09] MEDS: CARVEDILOL 12.5 MG TABLET PO SCH ×2 (10:39→22:07)
[2019-02-09] MEDS: ENOXAPARIN SODIUM INJ 30 MG/0.3 ML DISP.SYRIN SUBCUT SCH (10:39)
[2019-02-09] MEDS: INSULIN GLARGINE,HUM.REC.ANLOG 1,000 UNIT/10 ML VIAL SUBCUT SCH (10:39)
[2019-02-09] MEDS: GABAPENTIN 300 MG CAPSULE PO SCH ×2 (10:39→22:08)
[2019-02-09 10:40] LABS: ARTERIAL BLOOD FIO2 21%
[2019-02-09] MEDS: LISINOPRIL 10 MG TABLET PO SCH (10:40)
--- NOTE | 2019-02-09 11:35 | RADIOLOGY REPORT (SQ) ---
EXAM DESCRIPTION: MRI HEAD WITHOUT COMPLETED DATE/TIME: 02/09/2019 11:19 am REASON FOR STUDY: AMS COMPARISON: None. TECHNIQUE: Multiplanar imaging includes non-contrasted T1, T2, FLAIR, and diffusion with ADC map seq uences. Images stored on PACS. LIMITATIONS: None. FINDINGS: ANATOMY: No anomalies. Normal vascular flow voids. Pituitary fossa normal. CSF SPACES: Normal. CEREBRUM: High signal intensity lesions scattered throughout the white matter on FLAIR imaging with d istribution suggesting micro-vascular ischemic changes. No evidence of hemorrhage, mass, or extraaxi al fluid collection. POSTERIOR FOSSA: No signal alteration. No hemorrhage. No edema, masses or mass effect. Internal sarabjit tory canals, cerebello-pontine angles, mastoids normal. DIFFUSION IMAGING: There is a small focal area of restricted diffusion in the right lentiform nucleus (globus pallidus). ORBITS: No masses. Globes normal. PARANASAL SINUSES: No fluid levels. Mucosa normal. OTHER: No other significant finding. IMPRESSION: 1. SMALL FOCAL AREA OF RESTRICTED DIFFUSION IN THE RIGHT LENTIFORM NUCLEUS (GLOBUS PALLIDUS) CONSISTE NT WITH A RECENT LACUNAR INFARCT. 2. CHRONIC MICRO-VASCULAR ISCHEMIC CHANGES. EVIDENCE OF ACUTE STROKE: NO. TECHNICAL DOCUMENTATION: JOB ID: [id number] [employer]- All Rights Reserved Reading location - IP/workstation name: [email or web address]
--- NOTE | 2019-02-09 11:59 | PDOC PROGRESS REPORT ---
Subjective Progress Note for:: 02/09/19 Reason For Visit: Patient seen today. She is sedated as she had to go for MRI scan. Discussions were done with the treating nurse. She still periodically screams out. However patient has been rather lethargic and not verbally communicating. Labs and medications were reviewed with the nurse. MRI of the brain was reviewed. No acute evidences of any acute events. She is making moderate amounts of urine. Physical Exam Vital Signs: Temp Pulse Resp BP Pulse Ox 98.1 F 99 20 160/67 H 99 02/09/19 03:37 02/09/19 07:00 02/09/19 03:37 02/09/19 04:30 02/09/19 03:37 Intake & Output 02/08/19 02/09/19 02/10/19 06:59 06:59 06:59 Intake Total 562 Output Total 4600 Balance -4038 Weight 66.4 kg General appearance: PRESENT: no acute distress Exam: Patient is lying in bed and appears to be sleeping. She does not respond to verbal commands or shake and commands. According to the nurse she periodically screams out loud. Respiratory exam: PRESENT: clear to auscultation adriana. ABSENT: crackles Cardiovascular exam: PRESENT: +S1, +S2 GI/Abdominal exam: PRESENT: normal bowel sounds, soft. ABSENT: distended, organomegaly, tenderness Extremities exam: PRESENT: +1 edema Neurological exam: PRESENT: altered Skin exam: ABSENT: erythema, mottled, rash Results Laboratory Results: 02/09/19 06:04 02/09/19 06:04 02/08/19 02/09/19 02/09/19 19:40 06:04 06:04 WBC 13.7 H RBC 3.64 L Hgb 10.4 L Hct 32.5 L MCV 89 MCH 28.7 MCHC 32.2 RDW 15.1 H Plt Count 370 Seg Neutrophils % 74.9 Lymphocytes % 13.9 Monocytes % 9.5 Eosinophils % 0.4 Basophils % 1.3 Absolute Neutrophils 10.3 H Absolute Lymphocytes 1.9 Absolute Monocytes 1.3 Absolute Eosinophils 0.1 Absolute Basophils 0.2 Carbonic Acid HCO3/H2CO3 Ratio ABG pH ABG pCO2 ABG pO2 ABG HCO3 ABG O2 Saturation ABG Base Excess FiO2 Sodium 137.1 139.0 Potassium 4.5 3.7 Chloride 105 105 Carbon Dioxide 25 24 Anion Gap 7 10 BUN 23 H 31 H Creatinine 1.91 H 2.32 H Est GFR ( Amer) 34 L 27 L Est GFR (Non-Af Amer) 28 L 23 L Glucose 236 H 240 H Calcium 8.3 L 8.5 Phosphorus 4.9 H Magnesium 2.1 Total Bilirubin 0.4 AST 24 ALT 31 Alkaline Phosphatase 120 Total Protein 5.2 L Albumin 2.5 L 02/09/19 10:05 WBC RBC Hgb Hct MCV MCH MCHC RDW Plt Count Seg Neutrophils % Lymphocytes % Monocytes % Eosinophils % Basophils % Absolute Neutrophils Absolute Lymphocytes Absolute Monocytes Absolute Eosinophils Absolute Basophils Carbonic Acid 1.28 HCO3/H2CO3 Ratio 21:1 ABG pH 7.42 ABG pCO2 42.5 ABG pO2 67.9 L ABG HCO3 27.1 H ABG O2 Saturation 93.9 L ABG Base Excess 2.4 FiO2 21% Sodium Potassium Chloride Carbon Dioxide Anion Gap BUN Creatinine Est GFR ( Amer) Est GFR (Non-Af Amer) Glucose Calcium Phosphorus Magnesium Total Bilirubin AST ALT Alkaline Phosphatase Total Protein Albumin 02/08/19 02/09/19 06:11 06:04 Troponin I 0.020 NT-Pro-B Natriuret Pep 98761 H Impressions: Chest X-Ray 02/08/19 05:46 IMPRESSION: BORDERLINE CARDIOMEGALY WITH MILD VASCULAR PROMINENCE. Head CT 02/08/19 05:46 IMPRESSION: NORMAL BRAIN CT WITHOUT CONTRAST. EVIDENCE OF ACUTE STROKE: NO. Chest CT 02/08/19 08:35 IMPRESSION: Pulmonary edema and anasarca. No consolidation. Head MRI 02/09/19 00:00 IMPRESSION: 1. SMALL FOCAL AREA OF RESTRICTED DIFFUSION IN THE RIGHT LENTIFORM NUCLEUS (GLOBUS PALLIDUS) CONSISTENT WITH A RECENT LACUNAR INFARCT. 2. CHRONIC MICRO-VASCULAR ISCHEMIC CHANGES. EVIDENCE OF ACUTE STROKE: NO. Assessment & Plan - Diagnosis (1) Type 2 diabetes mellitus with hyperosmolar nonketotic hyperglycemia Plan: Her blood sugars are much better than when she came in. They are not hypoglycemic as well. Continue present lines of management as per hospitalist. (2) Congestive heart failure Plan: She has clinically responded to ultrafiltration on hemodialysis yesterday. She still has got signs of fluid overload but they are peripheral and I do not see any evidence to indicate central fluid overload. See how much she urinates and will plan for dialysis again tomorrow. Dialysis orders will be placed. (3) CKD (chronic kidney disease) stage 4, GFR 15-29 ml/min Is this a current diagnosis for this admission?: Yes Plan: Status quo. Today's creatinine is 2.3. Electrolytes are stable. However she has got anasarca. Additional labs are being requested. Monitor. (4) Anasarca associated with disorder of kidney Plan: Looks like she is got nephrotic syndrome from diabetes mellitus. Initiated on h emodialysis secondary to fluid overload at [facility]. Monitor. (5) Nephrotic syndrome Plan: In the process of being quantified. (6) Altered mental status Qualifiers: Altered mental status type: coma Is this a current diagnosis for this admission?: Yes Plan: She is encephalopathic unsure of exact etiology which is being worked out by the hospitalist. White count is still mildly elevated. As per discussions done with the nurse she is being scheduled to have lumbar puncture. (7) HTN (hypertension) Is this a current diagnosis for this admission?: Yes Plan: Labile. I would monitor for now. Might need to use PRN medications for now until she is more stable.
[2019-02-09] MEDS ORDERED: VANCOMYCIN HCL 0 MG in DEXTROSE 5%-WATER 250 ML IV NR (12:45)
[2019-02-09 12:51] LABS: INTERNATIONAL RATION (INR) 0.92; PROTHROMBIN TIME 12.8 SEC (11.4-15.4)
[2019-02-09 12:52] LABS: PARTIAL THROMBOPLASTIN TIME 27.4 SEC (23.5-35.8)
[2019-02-09] MEDS ORDERED: CEFTRIAXONE 2 GM/D5W RTU 2 GM/50 ML RTUPB IV SCH (14:00)
[2019-02-09] MEDS ORDERED: VANCOMYCIN HCL 1,250 MG in DEXTROSE 5%-WATER 250 ML IV ONE ×2 (15:00→20:00)
[2019-02-09 15:11] LABS: GLUCOSE,CSF 145 mg/dL (40-70); PROTEIN,CSF 55 mg/dL (12-60)
[2019-02-09 15:13] LABS: COLOR TUBE 1 STRAW; CSF TUBE NUMBER 3
[2019-02-09 15:14] LABS: APPEARANCE TUBE 1 SLIGHTLY HAZY; APPEARANCE TUBE 2 CLEAR; APPEARANCE TUBE 3 CLEAR; APPEARANCE TUBE 4 CLEAR; COLOR TUBE 2 COLORLESS; COLOR TUBE 3 COLORLESS; COLOR TUBE 4 COLORLESS; CSF TOTAL VOLUME 11.5 CC; RED BLOOD CELL,CSF 71 /uL (0-10); VOLUME TUBE 4 2.5 CC; WHITE BLOOD CELL,CSF 2 /uL (0-5)
--- NOTE | 2019-02-09 15:21 | RADIOLOGY REPORT (SQ) ---
EXAM DESCRIPTION: HUMERUS RIGHT COMPLETED DATE/TIME: 02/09/2019 3:08 pm REASON FOR STUDY: bruising COMPARISON: None. NUMBER OF VIEWS: Two views. TECHNIQUE: Two radiographic images were acquired of the right humerus to include elbow and shoulder in at least one projection. LIMITATIONS: None. FINDINGS: MINERALIZATION: Normal. BONES: No acute fracture or dislocation. No worrisome bone lesions. SOFT TISSUES: No obvious swelling or foreign body. OTHER: No other significant finding. IMPRESSION: NEGATIVE STUDY OF THE RIGHT HUMERUS. NO RADIOGRAPHIC EVIDENCE OF ACUTE INJURY. TECHNICAL DOCUMENTATION: JOB ID: [id number] [employer]- All Rights Reserved Reading location - IP/workstation name: [email or web address]
--- NOTE | 2019-02-09 15:32 | RADIOLOGY REPORT (SQ) ---
EXAM DESCRIPTION: LUMBAR PUNCTURE; FLUORO/NEEDLE PLACEMENT/SPINE COMPLETED DATE/TIME: 02/09/2019 3:11 pm REASON FOR STUDY: AMS, Leukocytosis, Nuchal rigidity; AMS COMPARISON: None. FLUOROSCOPY TIME: 14 seconds. 1 image saved to PACS. TECHNIQUE: Fluoroscopic guided lumbar puncture with opening and closing pressures. LIMITATIONS: None. PROCEDURE: After written consent and assessment were obtained, the patient was brought into the fluo roscopy room and placed prone on the table. The patient's lower back was prepped in a sterile fashion and an entry site was selected under live fluoroscopic guidance. The entry site was anesthetized wit h 1% lidocaine. The spinal needle was advanced through the skin and into the thecal sac at the level of L 2 -L 3 . An opening pressure of 26 units was obtained. After approximately 12 ml of CSF was jyothi ined, a closing pressure of 19 units was obtained. The needle was removed and a sterile bandage was p laced of the site. Specimens were sent to the lab for testing. A fluoroscopic spot image was saved to PACS confirming level access. FINDINGS: Clear CSF IMPRESSION: Lumbar puncture under fluoroscopy. No immediate complication. COMMENT: Patient medication list reviewed: Yes- Quality ID# [id number]:Eligible professional attests to doc umenting in the medical record they obtained, updated, or reviewed the patient's current medications. Quality ID [id number]: Final reports for procedures using fluoroscopy that document radiation exposure indic es, or exposure time and number of fluorographic images (if radiation exposure indices are not availa ble) TECHNICAL DOCUMENTATION: Job ID: [id number] [employer]- All Rights Reserved Reading location - IP/workstation name: [email or web address]
[2019-02-09] MEDS ORDERED: LORAZEPAM INJ 2 MG/1 ML VIAL IV PRN (15:36)
[2019-02-09 17:13] LABS: URINE PROTEIN 2849.4 mg/dL (<12)
[2019-02-09 17:15] LABS: UR PRO/CREAT RATIO RESULT 32.9 mg/mg (0.0-0.2); URINE CREATININE 86.7 mg/dL (15-278)
[2019-02-09] MEDS: CEFTRIAXONE 2 GM/D5W RTU 2 GM/50 ML RTUPB IV SCH (22:26)
--- NOTE | 2019-02-09 23:55 | PDOC PROGRESS REPORT ---
Subjective Progress Note for:: 02/09/19 Subjective:: LIONEL WICK is a 48 year old female with a PMH of CVA x2, ESRD (MWF), DM, HTN, neuropathy. She was brought to the emergency department by her friend for altered mental status. Patient was seen on morning rounds. She was found resting in bed, supine, with even and unlabored breathing on room air. She is responsive to loud verbal stimuli on occasion, withdraws to pain, but does not make sustained eye contact, answer questions, or follow commands. She is groaning constantly, but I am unable to localize the source of her discomfort. She does appear to have profound nuchal rigidity. Pupils are equal, round, 3 mm, and minimally responsive to light. Blink reflex intact. ROS is limited secondary to mental status. Case discussed with nursing and Dr. Duong throughout the day. Reason For Visit: DKA/ACUTE ON CHRONIC RENAL FAILURE/ENCEPHALOPATHY Physical Exam Vital Signs: Temp Pulse Resp BP Pulse Ox 97.2 F 98 15 152/64 H 100 02/09/19 15:17 02/09/19 15:17 02/09/19 15:17 02/09/19 15:17 02/09/19 15:17 Intake & Output 02/08/19 02/09/19 02/10/19 06:59 06:59 06:59 Intake Total 562 0 Output Total 4600 75 Balance -4038 -75 Weight 66.4 kg 66.4 kg General appearance: PRESENT: disheveled, mild distress, thin, well-developed, other - anasarca Head exam: PRESENT: atraumatic, normocephalic Eye exam: PRESENT: conjunctiva pink, EOMI, periorbital swelling, PERRLA - minimally responsive to light. ABSENT: scleral icterus Ear exam: PRESENT: normal external ear exam Mouth exam: PRESENT: dry mucosa, tongue midline Teeth exam: PRESENT: poor dentation Neck exam: PRESENT: other - nuchal ridgidity. ABSENT: carotid bruit, JVD, lymphadenopathy, thyromegaly Respiratory exam: PRESENT: clear to auscultation adriana, symmetrical, unlabored. ABSENT: rales, rhonchi, wheezes Cardiovascular exam: PRESENT: RRR, +S1, +S2. ABSENT: diastolic murmur, rubs, systolic murmur Pulses: PRESENT: normal dorsalis pedis pul Vascular exam: PRESENT: normal capillary refill GI/Abdominal exam: PRESENT: normal bowel sounds, soft. ABSENT: distended, guarding, mass, organolmegaly, rebound, tenderness Rectal exam: PRESENT: deferred Extremities exam: PRESENT: full ROM, +1 edema - peripheral. ABSENT: calf tenderness, clubbing, pedal edema Neurological exam: PRESENT: alert, altered, awake, CN II-XII grossly intact. ABSENT: motor sensory deficit Skin exam: PRESENT: dry, intact, warm. ABSENT: cyanosis, rash Results Laboratory Results: 02/09/19 06:04 02/09/19 06:04 02/08/19 02/09/19 02/09/19 19:40 06:04 06:04 WBC 13.7 H RBC 3.64 L Hgb 10.4 L Hct 32.5 L MCV 89 MCH 28.7 MCHC 32.2 RDW 15.1 H Plt Count 370 Seg Neutrophils % 74.9 Lymphocytes % 13.9 Monocytes % 9.5 Eosinophils % 0.4 Basophils % 1.3 Absolute Neutrophils 10.3 H Absolute Lymphocytes 1.9 Absolute Monocytes 1.3 Absolute Eosinophils 0.1 Absolute Basophils 0.2 Carbonic Acid HCO3/H2CO3 Ratio ABG pH ABG pCO2 ABG pO2 ABG HCO3 ABG O2 Saturation ABG Base Excess FiO2 Sodium 137.1 139.0 Potassium 4.5 3.7 Chloride 105 105 Carbon Dioxide 25 24 Anion Gap 7 10 BUN 23 H 31 H Creatinine 1.91 H 2.32 H Est GFR ( Amer) 34 L 27 L Est GFR (Non-Af Amer) 28 L 23 L Glucose 236 H 240 H Calcium 8.3 L 8.5 Phosphorus 4.9 H Magnesium 2.1 Total Bilirubin 0.4 AST 24 ALT 31 Alkaline Phosphatase 120 Total Protein 5.2 L Albumin 2.5 L Fluid Tube Number CSF Volume CSF WBC CSF RBC CSF Color (1) CSF Appearance (1) CSF Color (2) CSF Appearance (2) CSF Color (3) CSF Appearance (3) CSF Color (4) CSF Appearance (4) CSF Glucose CSF Total Protein 02/09/19 02/09/19 02/09/19 10:05 14:22 14:22 WBC RBC Hgb Hct MCV MCH MCHC RDW Plt Count Seg Neutrophils % Lymphocytes % Monocytes % Eosinophils % Basophils % Absolute Neutrophils Absolute Lymphocytes Absolute Monocytes Absolute Eosinophils Absolute Basophils Carbonic Acid 1.28 HCO3/H2CO3 Ratio 21:1 ABG pH 7.42 ABG pCO2 42.5 ABG pO2 67.9 L ABG HCO3 27.1 H ABG O2 Saturation 93.9 L ABG Base Excess 2.4 FiO2 21% Sodium Potassium Chloride Carbon Dioxide Anion Gap BUN Creatinine Est GFR ( Amer) Est GFR (Non-Af Amer) Glucose Calcium Phosphorus Magnesium Total Bilirubin AST ALT Alkaline Phosphatase Total Protein Albumin Fluid Tube Number 3 CSF Volume 11.5 CSF WBC 2 CSF RBC 71 CSF Color (1) STRAW CSF Appearance (1) SLIGHTLY HAZY CSF Color (2) COLORLESS CSF Appearance (2) CLEAR CSF Color (3) COLORLESS CSF Appearance (3) CLEAR CSF Color (4) COLORLESS CSF Appearance (4) CLEAR CSF Glucose 145 H CSF Total Protein 55 02/08/19 02/09/19 06:11 06:04 Troponin I 0.020 NT-Pro-B Natriuret Pep 45433 H Impressions: Chest X-Ray 02/08/19 05:46 IMPRESSION: BORDERLINE CARDIOMEGALY WITH MILD VASCULAR PROMINENCE. Head CT 02/08/19 05:46 IMPRESSION: NORMAL BRAIN CT WITHOUT CONTRAST. EVIDENCE OF ACUTE STROKE: NO. Chest CT 02/08/19 08:35 IMPRESSION: Pulmonary edema and anasarca. No consolidation. Guidance Fluoroscopy 02/09/19 00:00 IMPRESSION: Lumbar puncture under fluoroscopy. No immediate complication. Head MRI 02/09/19 00:00 IMPRESSION: 1. SMALL FOCAL AREA OF RESTRICTED DIFFUSION IN THE RIGHT LENTIFORM NUCLEUS (GLOBUS PALLIDUS) CONSISTENT WITH A RECENT LACUNAR INFARCT. 2. CHRONIC MICRO-VASCULAR ISCHEMIC CHANGES. EVIDENCE OF ACUTE STROKE: NO. Humerus X-Ray 02/09/19 00:00 IMPRESSION: NEGATIVE STUDY OF THE RIGHT HUMERUS. NO RADIOGRAPHIC EVIDENCE OF ACUTE INJURY. Lumbar Puncture 02/09/19 00:00 IMPRESSION: Lumbar puncture under fluoroscopy. No immediate complication. Assessment and Plan - Diagnosis (1) Altered mental status Qualifiers: Altered mental status type: coma Is this a current diagnosis for this admission?: Yes Plan: Unclear etiology Possible hyperosmolar coma vs stroke vs meningitis vs substance abuse/withdrawal CT negative MRI demonstrates small, recent, lacunar infarct (however, area would result in primarily motor deficits and not encephalopathic findings) LP revealed hazy CSF w/ nml protein, elevated glucose (secondary to hyperglycemic state); cultures and sensitives pending. Opening pressure 26. Patient is unlikely to be uremic as she actually worsened following dialysis yesterday. Will obtain HIV and RPR w/ am lab work. Patient is admitted to [facility] on continuous telemetry. Some question as to recent EtOH and/or drug use as family members report they are estranged due to the same and patient is now in questionable living situations. UDS was negative, however, EtOH not obtained and many synthetics are not easily identified (? CBD, Kratom, EtOH withdrawal are especially considered). Patient did not have acidosis so ethanol/methanol are ruled out. Patient did respond well to low-dose ativan; will continue prn for anxiety/agitation/withdrawal symptoms and will reduce dosing daily to attempt to wean off. She is empirically placed on IV Vancomycin and Rocephin for meningitis. Unfortunately, she continues to require restraints for pulling at lines. Continue to manage hyperglycemia as below. 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 Avoid nephrotoxic medications; now on renally dosed vancomycin. Nephrology is consulted; appreciate Dr. Alexander' assistance. (3) Diabetes mellitus with hyperosmolarity without hyperglycemic hyperosmolar nonketotic coma Is this a current diagnosis for this admission?: Yes Plan: PMH DM type 2 Noncompliance with medications over the weekend Presented with HHNK - BG 550 Osm 322 Anion Gap 14, no acidosis or ketosis Initially treated with insulin gtt., weaned off once patient's BG <200 Patients AMS could be secondary to hyperosmolar coma Currently NPO secondary to mental status. Every 6 hours Accu-Cheks; 134-321 since off gtt Of note,Vancomycin is indextrose which may account for the increase in glucose this evening. Continue Humalog sliding scale insulin Resume home dose Lantus Hypoglycemia protocol. (4) HTN (hypertension) Is this a current diagnosis for this admission?: Yes Plan: PMH HTN Resume home medication regiment once tolerating p.o. IV hydralazine PRN SBP>170 IV Lopressor as needed SBP>170 or HR>120 (5) Leukocytosis Is this a current diagnosis for this admission?: Yes Plan: No source of infection at this time CXR & CT shows bilateral pleural effusions UA negative for UTI (+) Leukocytosis; 14.9->13.7 Afebrile, though hypothermic overnight (96.9 rectal) Blood cultures pending Lumbar puncture as above. Throat culture pending. Antibiotics as above. - Time Time Spent with patient: 35 or more minutes Medications reviewed and adjusted accordingly: Yes - Plan Summary Plan Summary: Patient's case discussed and plan of care developed w/ Dr. Duong.
[2019-02-10] MEDS: INSULIN LISPRO 100 UNIT/ML 3 ML VIAL SUBCUT SCH ×5 (00:04→23:00)
[2019-02-10] MEDS: HYDRALAZINE HCL INJ/PF 20 MG/1 ML SDV IV PRN (00:48)
[2019-02-10] MEDS ORDERED: ACETAMINOPHEN 650 MG SUPP.RECT PR PRN (01:30)
[2019-02-10] MEDS: CLONIDINE HCL 0.1 MG TABLET PO SCH ×3 (05:35→22:41)
[2019-02-10 06:39] LABS: ABSOLUTE BASOPHILS # (AUTO) 0.2 10^3/uL (0.0-0.2); ABSOLUTE EOSINOPHILS # (AUTO) 0.2 10^3/uL (0.0-0.6); ABSOLUTE LYMPHOCYTES (AUTO) 1.5 10^3/uL (0.5-4.7); ABSOLUTE MONOCYTES (AUTO) 1.7 10^3/uL (0.1-1.4); ABSOLUTE NEUT (AUTO) 12.1 10^3/uL (1.7-8.2); BASOPHILS % (AUTO) 1.2 % (0-2); EOSINOPHILS % (AUTO) 1.4 % (0-6); HEMATOCRIT 30.5 % (36.0-47.0); HEMOGLOBIN 10.2 g/dL (12.0-15.5); LYMPHOCYTES % (AUTO) 9.4 % (13-45); MEAN CORPUSCULAR HEMOGLOBIN 29.3 pg (27.0-33.4); MEAN CORPUSCULAR HGB CONC 33.3 g/dL (32.0-36.0); MEAN CORPUSCULAR VOLUME 88 fl (80-97); MONOCYTES % (AUTO) 10.7 % (3-13); PLATELET COUNT 419 10^3/uL (150-450); RED BLOOD COUNT 3.47 10^6/uL (3.72-5.28); RED CELL DISTRIBUTION WIDTH 15.1 % (11.5-14.0); SEGMENTED NEUTROPHILS % (AUTO) 77.3 % (42-78); TOTAL CELLS COUNTED % (AUTO) 100 %; WHITE BLOOD COUNT 15.6 10^3/uL (4.0-10.5)
[2019-02-10 07:14] LABS: FREE T3 1.98 pg/mL (2.77-5.27); FREE T4 (FREE THYROXINE) 1.49 ng/dL (0.78-2.19)
[2019-02-10 07:27] LABS: THYROID STIMULATING HORMONE 4.21 uIU/mL (0.47-4.68)
[2019-02-10 07:58] LABS: ANION GAP 9 (5-19); BLOOD UREA NITROGEN 36 mg/dL (7-20); CALCIUM 9.1 mg/dL (8.4-10.2); CARBON DIOXIDE 23 mmol/L (22-30); CHLORIDE 107 mmol/L (98-107); GLUCOSE 132 mg/dL (75-110); PHOSPHORUS 6.3 mg/dL (2.5-4.5); POTASSIUM 3.4 mmol/L (3.6-5.0); SODIUM 139.2 mmol/L (137-145)
[2019-02-10] MEDS: FUROSEMIDE 40 MG TABLET PO SCH ×2 (09:04→12:10)
[2019-02-10] MEDS: CALCIUM ACETATE 667 MG CAPSULE PO SCH ×3 (09:05→17:26)
[2019-02-10] MEDS ORDERED: DEXTROSE 5%-1/2 NORMAL SALINE 1,000 ML IV PRN (11:12)
--- NOTE | 2019-02-10 11:23 | EKG REPORT ---
SEVERITY:- BORDERLINE ECG - SINUS TACHYCARDIA LOW VOLTAGE WITH RIGHT AXIS DEVIATION : Confirmed by: Rach Dasilva 10-Feb-2019 11:23:15
[2019-02-10] MEDS: ENOXAPARIN SODIUM INJ 30 MG/0.3 ML DISP.SYRIN SUBCUT SCH (12:08)
[2019-02-10] MEDS: LISINOPRIL 10 MG TABLET PO SCH (12:08)
[2019-02-10] MEDS: HYDRALAZINE HCL 50 MG TABLET PO SCH ×2 (12:08→22:43)
[2019-02-10] MEDS: GABAPENTIN 300 MG CAPSULE PO SCH ×2 (12:08→22:43)
[2019-02-10] MEDS: CARVEDILOL 12.5 MG TABLET PO SCH ×2 (12:08→22:43)
[2019-02-10] MEDS: INSULIN GLARGINE,HUM.REC.ANLOG 1,000 UNIT/10 ML VIAL SUBCUT SCH (12:16)
--- NOTE | 2019-02-10 12:25 | PDOC PROGRESS REPORT ---
Subjective Progress Note for:: 02/10/19 Reason For Visit: Patient was seen on the floor today. Discussions were done with the treating nurse. Patient is a bit more awake than when I saw her yesterday and she is able to respond fairly well to questions even though she is quite lethargic. However the response that I got today was much more positive than what I had yesterday when she was completely washed out. She says she has mild headache in the frontal area of her head. She denies any history of chest pains or shortness of breath. No abdominal pains. Labs and medications were reviewed with the nurse. I also did discuss her case with Ms. Durán/hospitalist. Her intake has been poor because she has been lethargic. Urine output has been just 175. However she was dialyzed on Friday and we had removed approximately 4 L as she had both evidences of central and peripheral fluid overload. Physical Exam Vital Signs: Temp Pulse Resp BP Pulse Ox 98.1 F 96 16 165/79 H 99 02/10/19 08:00 02/10/19 08:00 02/10/19 08:00 02/10/19 08:00 02/10/19 08:00 Intake & Output 02/09/19 02/10/19 02/11/19 06:59 06:59 06:59 Intake Total 562 300 Output Total 4600 175 Balance -4038 125 Weight 66.4 kg 66.9 kg General appearance: PRESENT: no acute distress, disheveled Exam: She is still quite lethargic but is able to respond to your questions which is a good positive improvement from yesterday when I saw her. She is moving all the 4 limbs. She does not make eye contact. Respiratory exam: PRESENT: clear to auscultation adriana, decreased breath sounds. ABSENT: crackles Cardiovascular exam: PRESENT: +S1, +S2 GI/Abdominal exam: PRESENT: normal bowel sounds, soft. ABSENT: distended, organomegaly, tenderness Extremities exam: PRESENT: pedal edema Neurological exam: PRESENT: altered Skin exam: PRESENT: dry. ABSENT: cyanosis, erythema, mottled, normal color, rash Results Laboratory Results: 02/10/19 06:25 02/10/19 06:25 02/09/19 02/09/19 02/10/19 14:22 14:22 06:25 WBC 15.6 H RBC 3.47 L Hgb 10.2 L Hct 30.5 L MCV 88 MCH 29.3 MCHC 33.3 RDW 15.1 H Plt Count 419 Seg Neutrophils % 77.3 Lymphocytes % 9.4 L Monocytes % 10.7 Eosinophils % 1.4 Basophils % 1.2 Absolute Neutrophils 12.1 H Absolute Lymphocytes 1.5 Absolute Monocytes 1.7 H Absolute Eosinophils 0.2 Absolute Basophils 0.2 Sodium Potassium Chloride Carbon Dioxide Anion Gap BUN Creatinine Est GFR ( Amer) Est GFR (Non-Af Amer) Glucose Calcium Phosphorus Magnesium TSH Free T4 Free T3 pg/mL PTH Intact Fluid Tube Number 3 CSF Volume 11.5 CSF WBC 2 CSF RBC 71 CSF Color (1) STRAW CSF Appearance (1) SLIGHTLY HAZY CSF Color (2) COLORLESS CSF Appearance (2) CLEAR CSF Color (3) COLORLESS CSF Appearance (3) CLEAR CSF Color (4) COLORLESS CSF Appearance (4) CLEAR CSF Glucose 145 H CSF Total Protein 55 02/10/19 02/10/19 02/10/19 06:25 06:25 06:25 WBC RBC Hgb Hct MCV MCH MCHC RDW Plt Count Seg Neutrophils % Lymphocytes % Monocytes % Eosinophils % Basophils % Absolute Neutrophils Absolute Lymphocytes Absolute Monocytes Absolute Eosinophils Absolute Basophils Sodium 139.2 Potassium 3.4 L Chloride 107 Carbon Dioxide 23 Anion Gap 9 BUN 36 H Creatinine 2.90 H Est GFR ( Amer) 21 L Est GFR (Non-Af Amer) 17 L Glucose 132 H Calcium 9.1 Phosphorus 6.3 H Magnesium 2.2 TSH 4.21 Free T4 1.49 Free T3 pg/mL 1.98 L PTH Intact 66.8 H Fluid Tube Number CSF Volume CSF WBC CSF RBC CSF Color (1) CSF Appearance (1) CSF Color (2) CSF Appearance (2) CSF Color (3) CSF Appearance (3) CSF Color (4) CSF Appearance (4) CSF Glucose CSF Total Protein 02/08/19 02/09/19 06:11 06:04 Troponin I 0.020 NT-Pro-B Natriuret Pep 39702 H Impressions: Chest X-Ray 02/08/19 05:46 IMPRESSION: BORDERLINE CARDIOMEGALY WITH MILD VASCULAR PROMINENCE. Head CT 02/08/19 05:46 IMPRESSION: NORMAL BRAIN CT WITHOUT CONTRAST. EVIDENCE OF ACUTE STROKE: NO. Chest CT 02/08/19 08:35 IMPRESSION: Pulmonary edema and anasarca. No consolidation. Guidance Fluoroscopy 02/09/19 00:00 IMPRESSION: Lumbar puncture under fluoroscopy. No immediate complication. Head MRI 02/09/19 00:00 IMPRESSION: 1. SMALL FOCAL AREA OF RESTRICTED DIFFUSION IN THE RIGHT LENTIFORM NUCLEUS (GLOBUS PALLIDUS) CONSISTENT WITH A RECENT LACUNAR INFARCT. 2. CHRONIC MICRO-VASCULAR ISCHEMIC CHANGES. EVIDENCE OF ACUTE STROKE: NO. Humerus X-Ray 02/09/19 00:00 IMPRESSION: NEGATIVE STUDY OF THE RIGHT HUMERUS. NO RADIOGRAPHIC EVIDENCE OF ACUTE INJURY. Lumbar Puncture 02/09/19 00:00 IMPRESSION: Lumbar puncture under fluoroscopy. No immediate complication. Assessment & Plan - Diagnosis (1) Type 2 diabetes mellitus with hyperosmolar nonketotic hyperglycemia Plan: Her blood sugars are much better than when she came in. They are not hypoglycemic as well. Continue present lines of management as per hospitalist. (2) Congestive heart failure Plan: She has clinically responded to ultrafiltration on hemodialysis on Friday She still has got signs of fluid overload but they are peripheral and I do not see any evidence to indicate central fluid overload.Currently she looks dry. Her electrolytes are stable and her creatinine is 2.9. I will start her on gentle hydration and see how she will respond with the urine output. I would hold off on her dialysis for today as I do not see any acute indications currently in the given circumstances. Discussed this with Nomi Durán/hospitalist. However the fact that she presented with congestive heart failure she needs to be cardiac risk stratified for obvious reasons. She at least needs to get series of troponins followed by echocardiogram and possible stress test. I also did discuss the case with Dr. Chao, her helmet hat brim cutter at [facility]. Apparently he got the patient from [facility], 3 to 4 weeks ago because of apparent central fluid overload. Patient has been very noncompliant with her medications. They have been dialyzing her as an outpatient for mainly fluid removal. He had questions to whether she had bacterial meningitis and I assured him that it was not the case after the lumbar puncture was done. She may have a viral encephalopathy however. (3) CKD (chronic kidney disease) stage 4, GFR 15-29 ml/min Is this a current diagnosis for this admission?: Yes Plan: Status quo. Today's creatinine is 2.9. Electrolytes are stable. However she has got anasarca. Fluid status shows that she is got peripheral fluid overload without any obvious central fluid overload. Her urine output was just 175 today. However she had about approximately 4 L of fluid removed on dialysis on Friday. Therefore I am going to start on gentle hydration for today with D5 half normal and see if she will respond with more urine over the next couple of days. Further dialysis will be done either tomorrow if needed or otherwise will reevaluate her on Friday. I am off as of evening to Friday and I will discuss this case with Dr. Cabezas who is my covering quality compliance consultant when I am off for this time.Monitor. (4) Anasarca associated with disorder of kidney Plan: Looks like she is got nephrotic syndrome. Her UPC came back at 32. Unable to get the clear history obviously from the patient. Ms. Durán/[facility] has been trying hard to get in touch with the next of kin/family to get a more detailed history but to no avail. As mentioned earlier and I did discuss her with her attending helmet hat brim cutter at [facility] but had limited information as well. Initiated on hemodialysis secondary to fluid overload at [facility]. Monitor. (5) Nephrotic syndrome Plan: UPC came back at 32. We will initially hydrate her and then start her on IV Lasix and see if she is going to respond. If not will have her on back-up hemodialysis. However as per my discussions if she needs to be cardiac risk stratified to see if she is got underlying cardiomyopathy especially ischemic given her history of complicated diabetes mellitus. Discussed with Leeanna/hosp italist.. (6) Altered mental status Qualifiers: Altered mental status type: coma Is this a current diagnosis for this admission?: Yes Plan: She is showing some mild improvement compared to the last 2 days which is encouraging. Further management as per hospitalist. Concerning is the fact that she is got increasing leukocytosis. So far lumbar puncture is negative for any bacterial meningitis.She has been started empirically on IV antibiotics in the meanwhile. (7) HTN (hypertension) Is this a current diagnosis for this admission?: Yes Plan: Labile. I would monitor for now. Might need to use PRN medications for now until she is more stable.
[2019-02-10] MEDS: ACETAMINOPHEN 325 MG TABLET PO PRN (13:16)
[2019-02-10] MEDS ORDERED: VANCOMYCIN HCL 750 MG in DEXTROSE 5%-WATER 250 ML IV SCH (18:00)
--- NOTE | 2019-02-10 18:48 | PDOC PROGRESS REPORT ---
Subjective Progress Note for:: 02/10/19 Subjective:: LIONEL WICK is a 48 year old female with a PMH of CVA x2, ESRD (MWF), DM, HTN, neuropathy. She was brought to the emergency department by her friend for altered mental status. Patient was seen on morning rounds. She was found resting in bed, supine, with even and unlabored breathing on room air. She is sleeping when I enter the room, but wakes easily when I say her name. She does quickly fall back to sleep but again wakes easily. She is oriented to self, place, and year; she is noted to have delayed and slurred speech. She follows simple directions this morning. No nuchal rigidity present today; pupils are equal, round, 3 mm, and responsive to light though sluggish. She denies fever, chills, chest pain, shortness of breath, cough, abdominal pain, nausea vomiting and diarrhea. She does report lower leg pain that is nonspecific and she is unable to describe further. Reason For Visit: DKA/ACUTE ON CHRONIC RENAL FAILURE/ENCEPHALOPATHY Physical Exam Vital Signs: Temp Pulse Resp BP Pulse Ox 98.1 F 78 16 151/61 H 98 02/10/19 15:40 02/10/19 15:40 02/10/19 15:40 02/10/19 15:40 02/10/19 15:40 Intake & Output 02/09/19 02/10/19 02/11/19 06:59 06:59 06:59 Intake Total 110 774 4422 Output Total 4600 175 175 Balance -4038 125 951 Weight 66.4 kg 66.9 kg General appearance: PRESENT: no acute distress, disheveled, thin, well- developed, other - Anasarca Head exam: PRESENT: atraumatic, normocephalic Eye exam: PRESENT: conjunctiva pink, EOMI, periorbital swelling, PERRLA. ABSENT: scleral icterus Ear exam: PRESENT: normal external ear exam Mouth exam: PRESENT: dry mucosa, tongue midline Neck exam: PRESENT: full ROM. ABSENT: carotid bruit, JVD, lymphadenopathy, meningismus, tenderness, thyromegaly Respiratory exam: PRESENT: clear to auscultation adriana, symmetrical, unlabored. ABSENT: rales, rhonchi, wheezes Cardiovascular exam: PRESENT: RRR, +S1, +S2. ABSENT: diastolic murmur, rubs, systolic murmur Pulses: PRESENT: normal dorsalis pedis pul Vascular exam: PRESENT: normal capillary refill GI/Abdominal exam: PRESENT: normal bowel sounds, soft. ABSENT: distended, guarding, mass, organolmegaly, rebound, tenderness Rectal exam: PRESENT: deferred Extremities exam: PRESENT: full ROM - Moves all extremities spontaneously, +2 edema - Peripheral (pedal and hands). ABSENT: calf tenderness, clubbing, pedal edema Neurological exam: PRESENT: alert, awake, oriented to person, oriented to place, oriented to time, CN II-XII grossly intact, other - Lethargic, wakes easily and answers a few questions with delayed/slurred speech; quickly falls back to sleep. ABSENT: motor sensory deficit Psychiatric exam: PRESENT: appropriate affect, normal mood. ABSENT: homicidal ideation, suicidal ideation Skin exam: PRESENT: dry, intact, warm. ABSENT: cyanosis, rash Results Laboratory Results: 02/10/19 06:25 02/10/19 06:25 02/10/19 02/10/19 02/10/19 06:25 06:25 06:25 WBC 15.6 H RBC 3.47 L Hgb 10.2 L Hct 30.5 L MCV 88 MCH 29.3 MCHC 33.3 RDW 15.1 H Plt Count 419 Seg Neutrophils % 77.3 Lymphocytes % 9.4 L Monocytes % 10.7 Eosinophils % 1.4 Basophils % 1.2 Absolute Neutrophils 12.1 H Absolute Lymphocytes 1.5 Absolute Monocytes 1.7 H Absolute Eosinophils 0.2 Absolute Basophils 0.2 Sodium 139.2 Potassium 3.4 L Chloride 107 Carbon Dioxide 23 Anion Gap 9 BUN 36 H Creatinine 2.90 H Est GFR ( Amer) 21 L Est GFR (Non-Af Amer) 17 L Glucose 132 H Calcium 9.1 Phosphorus 6.3 H Magnesium 2.2 TSH Free T4 Free T3 pg/mL PTH Intact 66.8 H 02/10/19 06:25 WBC RBC Hgb Hct MCV MCH MCHC RDW Plt Count Seg Neutrophils % Lymphocytes % Monocytes % Eosinophils % Basophils % Absolute Neutrophils Absolute Lymphocytes Absolute Monocytes Absolute Eosinophils Absolute Basophils Sodium Potassium Chloride Carbon Dioxide Anion Gap BUN Creatinine Est GFR ( Amer) Est GFR (Non-Af Amer) Glucose Calcium Phosphorus Magnesium TSH 4.21 Free T4 1.49 Free T3 pg/mL 1.98 L PTH Intact 02/08/19 02/09/19 06:11 06:04 Troponin I 0.020 NT-Pro-B Natriuret Pep 99079 H Impressions: Chest X-Ray 02/08/19 05:46 IMPRESSION: BORDERLINE CARDIOMEGALY WITH MILD VASCULAR PROMINENCE. Head CT 02/08/19 05:46 IMPRESSION: NORMAL BRAIN CT WITHOUT CONTRAST. EVIDENCE OF ACUTE STROKE: NO. Chest CT 02/08/19 08:35 IMPRESSION: Pulmonary edema and anasarca. No consolidation. Guidance Fluoroscopy 02/09/19 00:00 IMPRESSION: Lumbar puncture under fluoroscopy. No immediate complication. Head MRI 02/09/19 00:00 IMPRESSION: 1. SMALL FOCAL AREA OF RESTRICTED DIFFUSION IN THE RIGHT LENTIFORM NUCLEUS (GLOBUS PALLIDUS) CONSISTENT WITH A RECENT LACUNAR INFARCT. 2. CHRONIC MICRO-VASCULAR ISCHEMIC CHANGES. EVIDENCE OF ACUTE STROKE: NO. Humerus X-Ray 02/09/19 00:00 IMPRESSION: NEGATIVE STUDY OF THE RIGHT HUMERUS. NO RADIOGRAPHIC EVIDENCE OF ACUTE INJURY. Lumbar Puncture 02/09/19 00:00 IMPRESSION: Lumbar puncture under fluoroscopy. No immediate complication. Assessment and Plan - Diagnosis (1) Altered mental status Qualifiers: Altered mental status type: coma Is this a current diagnosis for this admission?: Yes Plan: Improved today; patient is now arousable, follows commands, and is oriented to self, place, and year. Unclear etiology: possible hyperosmolar coma vs stroke vs meningitis vs substance abuse/withdrawal vs cva CT negative MRI demonstrates small, recent, lacunar infarct (however, area would result in primarily motor deficits and not encephalopathic findings) LP revealed hazy CSF w/ nml protein, elevated glucose (secondary to hyperglycemic state); cultures and sensitives pending. Opening pressure 26. Patient is unlikely to be uremic as she actually worsened following dialysis yesterday. HIV and RPR are negative. Will consider ACS event given patient's elevated proBNP; will obtain ec hocardiogram Patient is admitted to [facility] on continuous telemetry. Some question as to recent EtOH and/or drug use as family members report they are estranged due to the same and patient is now in questionable living situations. UDS was negative, however, EtOH not obtained and many synthetics are not easily identified (? CBD, Kratom, EtOH withdrawal are especially considered). Patient did not have acidosis so ethanol/methanol are ruled out. Patient did respond well to low-dose ativan yesterday; has only required 0.5 mg IV x2 in the last 24 hours. She is empirically placed on IV Vancomycin and Rocephin for meningitis; will adjust as cultures result Continue to manage hyperglycemia as below. As the patient is now awake and responsive to commands; will ask speech therapy to evaluate for dietary recommendations. Full liquid with aspiration precautions and supervised meals until fully cleared. 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 Nephrology is consulted; appreciate Dr. Alexander' assistance. No planned dialysis today; has started gentle IV fluids. Will reevaluate for possible dialysis on Friday. (3) Diabetes mellitus with hyperosmolarity without hyperglycemic hyperosmolar nonketotic coma Is this a current diagnosis for this admission?: Yes Plan: PMH DM type 2 Noncompliance with medications over the weekend Presented with [facility] - BG 550 Osm 322 Anion Gap 14, no acidosis or ketosis Initially treated with insulin gtt., weaned off once patient's BG <200 Patients AMS could be secondary to hyperosmolar coma Advanced to full liquid diet. Accu-Cheks with Humalog for sliding scale coverage. Continue home dose Lantus. Of note,Vancomycin is in dextrose and Dr. Alexander has started the patient on D51/2NS which may account for increased hyperglycemia. Hypoglycemia protocol. (4) HTN (hypertension) Is this a current diagnosis for this admission?: Yes Plan: PMH HTN Resume home medication regiment at the patient is tolerating p.o; clonidine, hy dralazine, lisinopril, and carvedilol. IV hydralazine PRN SBP>170 IV Lopressor as needed SBP>170 or HR>120 (5) Leukocytosis Is this a current diagnosis for this admission?: Yes Plan: No source of infection at this time CXR & CT shows bilateral pleural effusions UA negative for UTI (+) Leukocytosis; 14.9->13.7-> 15.6 Afebrile, though hypothermic overnight (96.9 rectal) Blood cultures pending Lumbar puncture negative at 24 hours. Viral and AFB pending; low suspicion Throat culture negative Antibiotics as above. (6) Acute CVA (cerebrovascular accident) Is this a current diagnosis for this admission?: Yes Plan: CT negative MRI demonstrates small, recent, lacunar infarct Patient is admitted to [facility] on continuous cardiac telemetry. Start daily aspirin and atorvastatin therapy. Check lipid panel with a.m. lab work. PT/OT/ST consultations are tested. Discharge planning is requested. (7) CHF (congestive heart failure) Is this a current diagnosis for this admission?: Yes Plan: proBNP elevated to 26k We will obtain echocardiogram. Patient is now awake enough to safely tolerate p.o. medications; start daily aspirin, statin therapy. Resume her home dose of clonidine 0.1 mg p.o. every 8 hours, hydralazine 100 mg p.o. every 12 hours, lisinopril 20 mg p.o. daily, and carvedilol 25 mg every 12 hours. Continue home dose furosemide 40 mg twice daily. Daily weights. Strict I&Os Consider cardiology consultation. - Time Time Spent with patient: 35 or more minutes Medications reviewed and adjusted accordingly: Yes Anticipated discharge: SNF Within: within 72 hours
[2019-02-10] MEDS: TRAMADOL HCL 50 MG TABLET PO PRN (19:02)
[2019-02-10] MEDS ORDERED: INSULIN GLARGINE,HUM.REC.ANLOG 1,000 UNIT/10 ML VIAL (PYX) SUBCUT PRN (22:35)
[2019-02-10] MEDS: ATORVASTATIN CALCIUM 40 MG TABLET PO SCH (22:42)
[2019-02-10] MEDS: ASPIRIN 81 MG TABLET, CHEWABLE PO SCH (22:42)
[2019-02-10] MEDS ORDERED: INSULIN GLARGINE,HUM.REC.ANLOG 1,000 UNIT/10 ML VIAL SUBCUT ONE (22:45)
[2019-02-10] MEDS: CEFTRIAXONE 2 GM/D5W RTU 2 GM/50 ML RTUPB IV SCH (22:46)
[2019-02-11] MEDS: CLONIDINE HCL 0.1 MG TABLET PO SCH ×3 (05:04→21:11)
[2019-02-11] MEDS ORDERED: INSULIN LISPRO 100 UNIT/ML 3 ML VIAL SUBCUT SCH (06:00)
[2019-02-11] MEDS: INSULIN LISPRO 100 UNIT/ML 3 ML VIAL SUBCUT SCH ×4 (08:13→22:25)
[2019-02-11] MEDS: FUROSEMIDE 40 MG TABLET PO SCH ×2 (08:17→12:04)
[2019-02-11] MEDS: CALCIUM ACETATE 667 MG CAPSULE PO SCH ×3 (08:17→16:47)
[2019-02-11 08:19] LABS: ANION GAP 6 (5-19); BLOOD UREA NITROGEN 39 mg/dL (7-20); CALCIUM 8.5 mg/dL (8.4-10.2); CARBON DIOXIDE 26 mmol/L (22-30); CHLORIDE 105 mmol/L (98-107); CHOLESTEROL 203.34 mg/dL (0-200); GLUCOSE 145 mg/dL (75-110); POTASSIUM 3.3 mmol/L (3.6-5.0); SODIUM 137.4 mmol/L (137-145); TRIGLYCERIDES 251 mg/dL (<150)
[2019-02-11 08:30] LABS: DIRECT LDL 109 mg/dL (<100)
[2019-02-11 08:33] LABS: VLDL CHOLESTEROL 50.2 mg/dL (10-31)
[2019-02-11] MEDS ORDERED: ALBUTEROL SULFATE 0.083% NEB 2.5 MG/3 ML AMPUL NEB PRN (09:16)
[2019-02-11] MEDS ORDERED: POTASSIUM CHLORIDE 10 MEQ CAPSULE.ER PO ONE (09:18)
[2019-02-11 10:07] LABS: HEMATOCRIT 28.8 % (36.0-47.0); HEMOGLOBIN 9.5 g/dL (12.0-15.5); MEAN CORPUSCULAR HEMOGLOBIN 29.5 pg (27.0-33.4); MEAN CORPUSCULAR VOLUME 89 fl (80-97); PLATELET COUNT 385 10^3/uL (150-450); RED BLOOD COUNT 3.22 10^6/uL (3.72-5.28); RED CELL DISTRIBUTION WIDTH 15.3 % (11.5-14.0); WHITE BLOOD COUNT 12.4 10^3/uL (4.0-10.5)
[2019-02-11] MEDS: TRAMADOL HCL 50 MG TABLET PO PRN ×2 (10:10→16:47)
[2019-02-11] MEDS: HYDRALAZINE HCL 50 MG TABLET PO SCH ×2 (10:35→21:11)
[2019-02-11] MEDS: GUAIFENESIN 600 MG TABLET.SA PO SCH ×2 (10:36→21:10)
[2019-02-11] MEDS: CARVEDILOL 12.5 MG TABLET PO SCH ×2 (10:36→21:11)
[2019-02-11] MEDS: LISINOPRIL 10 MG TABLET PO SCH (10:36)
[2019-02-11] MEDS: GABAPENTIN 300 MG CAPSULE PO SCH ×2 (10:36→21:10)
[2019-02-11] MEDS: ENOXAPARIN SODIUM INJ 30 MG/0.3 ML DISP.SYRIN SUBCUT SCH (10:37)
[2019-02-11] MEDS: INSULIN GLARGINE,HUM.REC.ANLOG 1,000 UNIT/10 ML VIAL SUBCUT SCH (10:42)
--- NOTE | 2019-02-11 11:53 | RADIOLOGY REPORT (SQ) ---
EXAM DESCRIPTION: CHEST SINGLE VIEW COMPLETED DATE/TIME: 02/11/2019 11:06 am REASON FOR STUDY: cough, dyspnea COMPARISON: 02/08/2019 NUMBER OF VIEWS: One view. TECHNIQUE: Single frontal radiographic image of the chest acquired. LIMITATIONS: None. FINDINGS: LUNGS AND PLEURA: Improved aeration in the right lower lobe. Residual small left effusion . MEDIASTINUM AND HEART: Stable heart size and mediastinal structures. SUPPORT DEVICES: Appropriate location without change. BONY STRUCTURES: No acute findings. HARDWARE: None. OTHER: No other significant finding. IMPRESSION: Improved aeration in the right lung. Reading location - IP/workstation name: [email or web address]
[2019-02-11] MEDS ORDERED: 1/2 NORMAL SALINE 1,000 ML IV PRN (14:09)
--- NOTE | 2019-02-11 16:12 | PDOC PROGRESS REPORT ---
Subjective Progress Note for:: 02/11/19 Reason For Visit: Seen today in hospital. She is markedly improved as per her mental status . She is up and sittting and talking well and is having her lunch. She is very well aware of the situation at the moment. She has her sister by her bedside. She denies any history of chest pain or shortness of breath. No complaints of any headaches or seizures. She is not very good historian and does not remember exactly the etiology and the reasons for why she was started on hemodialysis approximately 4 weeks ago. She admits to the fact she makes decent amounts of urine. Labs and medications were reviewed with her and her sister. Discussions were also done with the treating nurse. Physical Exam Vital Signs: Temp Pulse Resp BP Pulse Ox 98.4 F 75 14 164/83 H 100 02/11/19 11:21 02/11/19 11:21 02/11/19 11:21 02/11/19 11:21 02/11/19 11:21 Intake & Output 02/10/19 02/11/19 02/12/19 06:59 06:59 06:59 Intake Total 300 1254 Output Total 175 375 Balance 125 879 Weight 66.9 kg 67 kg General appearance: PRESENT: no acute distress Respiratory exam: PRESENT: clear to auscultation adriana. ABSENT: crackles Cardiovascular exam: PRESENT: +S1, +S2 GI/Abdominal exam: PRESENT: normal bowel sounds, soft. ABSENT: distended, organomegaly, tenderness Extremities exam: ABSENT: pedal edema Neurological exam: PRESENT: alert, awake, oriented to person, oriented to place, oriented to time Psychiatric exam: PRESENT: appropriate affect Skin exam: ABSENT: erythema, mottled Results Laboratory Results: 02/11/19 09:27 02/11/19 07:52 02/11/19 02/11/19 02/11/19 07:52 07:52 09:27 WBC Cancelled 12.4 H RBC Cancelled 3.22 L Hgb Cancelled 9.5 L Hct Cancelled 28.8 L MCV Cancelled 89 MCH Cancelled 29.5 MCHC Cancelled 33.0 RDW Cancelled 15.3 H Plt Count Cancelled 385 Sodium 137.4 Potassium 3.3 L Chloride 105 Carbon Dioxide 26 Anion Gap 6 BUN 39 H Creatinine 3.04 H Est GFR ( Amer) 20 L Est GFR (Non-Af Amer) 17 L Glucose 145 H Calcium 8.5 Triglycerides 251 H Cholesterol 203.34 H LDL Cholesterol Direct 109 H VLDL Cholesterol 50.2 H HDL Cholesterol 43 02/09/19 11:40 Throat Throat Culture - Final NORMAL GARRISON 02/08/19 02/09/19 02/11/19 06:11 06:04 07:52 Troponin I 0.020 NT-Pro-B Natriuret Pep 19306 H 18691 H Impressions: Head CT 02/08/19 05:46 IMPRESSION: NORMAL BRAIN CT WITHOUT CONTRAST. EVIDENCE OF ACUTE STROKE: NO. Chest CT 02/08/19 08:35 IMPRESSION: Pulmonary edema and anasarca. No consolidation. Guidance Fluoroscopy 02/09/19 00:00 IMPRESSION: Lumbar puncture under fluoroscopy. No immediate complication. Head MRI 02/09/19 00:00 IMPRESSION: 1. SMALL FOCAL AREA OF RESTRICTED DIFFUSION IN THE RIGHT LENTIFORM NUCLEUS (GLOBUS PALLIDUS) CONSISTENT WITH A RECENT LACUNAR INFARCT. 2. CHRONIC MICRO-VASCULAR ISCHEMIC CHANGES. EVIDENCE OF ACUTE STROKE: NO. Humerus X-Ray 02/09/19 00:00 IMPRESSION: NEGATIVE STUDY OF THE RIGHT HUMERUS. NO RADIOGRAPHIC EVIDENCE OF AC CED INJURY. Lumbar Puncture 02/09/19 00:00 IMPRESSION: Lumbar puncture under fluoroscopy. No immediate complication. Chest X-Ray 02/11/19 00:00 IMPRESSION: Improved aeration in the right lung. Assessment & Plan - Diagnosis (1) Altered mental status Qualifiers: Altered mental status type: coma Is this a current diagnosis for this admission?: Yes Plan: Currently resolved and she is almost back to her baseline. (2) Type 2 diabetes mellitus with hyperosmolar nonketotic hyperglycemia Plan: Her blood sugars are much better than when she came in. They are not hypoglycemic as well. Continue present lines of management as per hospitalist. (3) Congestive heart failure Plan: Currently resolved. However I had discussions done with Crystal/hospitalist yesterday for cardiac risk stratification given the fact that she presented with congestive heart failure. The patient and her sister does not recall any cardia c evaluations done in the recent past. (4) CKD (chronic kidney disease) stage 4, GFR 15-29 ml/min Is this a current diagnosis for this admission?: Yes Plan: Status quo. Monitor.Patient does not show any signs of fluid overload today on examination. She has no pedal edema and his lungs are clear. Elect lites and creatinine is stable. I am starting her on gentle hydration and see how she responds with the urine output as well as her renal labs in the morning and make a determination that she needs to be on dialysis in the morning. Hold off on her diuretics as well. I am off till Friday and I discussed this patient with Dr. Cabezas who is covering me my absence. (5) Anasarca associated with disorder of kidney Plan: Currently her edema is markedly improved both in the legs as well as around the face. Continue to monitor. Obviously she has got highly nephrotic proteinuria which obviously was the cause of that. (6) Nephrotic syndrome Plan: UPC came back at 32. We will initially hydrate her and then start her on IV Lasix and see if she is going to respond. If not will have her on back-up hemodialysis. However as per my discussions if she needs to be cardiac risk stratified to see if she is got underlying cardiomyopathy especially ischemic given her history of complicated diabetes mellitus. Discussed with Crystal/hospitalist.. (7) HTN (hypertension) Is this a current diagnosis for this admission?: Yes Plan: Titrating medications. Monitor.
--- NOTE | 2019-02-11 17:34 | PDOC PROGRESS REPORT ---
Subjective Progress Note for:: 02/11/19 Subjective:: LIONEL WICK is a 48 year old female with a PMH of CVA x2, ESRD (MWF), DM, HTN, neuropathy. She was brought to the emergency department by her friend for altered mental status. Patient was seen on morning rounds. She was found resting in bed comfortably on room air. She is awake, alert, and texting on her phone when I come in. She tells me that she has body aches "everywhere" and becomes highly agitated when asked to describe/rate her pain. Unfortunately, the patient became further agitated during our conversation, frequently rolling her eyes (when told she had a new stroke, uncontrolled glucose on admission, and recommendation to stop smoking). She denies fever, chills, chest pain, shortness of breath, abdominal pain, nausea vomiting and diarrhea. She does complain of productive cough. She has no other questions or concerns at this time. Nursing has many social concerns w/ regard to patient but no acute medical issues today. Reason For Visit: DKA/ACUTE ON CHRONIC RENAL FAILURE/ENCEPHALOPATHY Physical Exam Vital Signs: Temp Pulse Resp BP Pulse Ox 98.1 F 73 17 162/73 H 100 02/11/19 15:17 02/11/19 15:17 02/11/19 15:17 02/11/19 15:17 02/11/19 15:17 Intake & Output 02/10/19 02/11/19 02/12/19 06:59 06:59 06:59 Intake Total 300 1254 300 Output Total 175 375 200 Balance 125 879 100 Weight 66.9 kg 67 kg General appearance: PRESENT: no acute distress, disheveled, well-developed, other - Anasarca. ABSENT: cooperative Head exam: PRESENT: atraumatic, normocephalic Eye exam: PRESENT: conjunctiva pink, EOMI, PERRLA. ABSENT: scleral icterus Ear exam: PRESENT: normal external ear exam Mouth exam: PRESENT: moist, tongue midline Teeth exam: PRESENT: poor dentation Neck exam: ABSENT: carotid bruit, JVD, lymphadenopathy, thyromegaly Respiratory exam: PRESENT: clear to auscultation adriana, symmetrical, unlabored. ABSENT: rales, rhonchi, wheezes Cardiovascular exam: PRESENT: RRR, +S1, +S2. ABSENT: diastolic murmur, rubs, systolic murmur Pulses: PRESENT: normal dorsalis pedis pul Vascular exam: PRESENT: normal capillary refill GI/Abdominal exam: PRESENT: normal bowel sounds, soft. ABSENT: distended, guarding, mass, organolmegaly, rebound, tenderness Rectal exam: PRESENT: deferred Extremities exam: PRESENT: full ROM. ABSENT: calf tenderness, clubbing, pedal edema Musculoskeletal exam: PRESENT: ambulatory Neurological exam: PRESENT: alert, awake, oriented to person, oriented to place, oriented to time, oriented to situation, CN II-XII grossly intact. ABSENT: motor sensory deficit Psychiatric exam: PRESENT: agitated, normal mood. ABSENT: homicidal ideation, suicidal ideation Skin exam: PRESENT: dry, intact, warm. ABSENT: cyanosis, rash Results Laboratory Results: 02/11/19 09:27 02/11/19 07:52 02/11/19 02/11/19 02/11/19 07:52 07:52 09:27 WBC Cancelled 12.4 H RBC Cancelled 3.22 L Hgb Cancelled 9.5 L Hct Cancelled 28.8 L MCV Cancelled 89 MCH Cancelled 29.5 MCHC Cancelled 33.0 RDW Cancelled 15.3 H Plt Count Cancelled 385 Sodium 137.4 Potassium 3.3 L Chloride 105 Carbon Dioxide 26 Anion Gap 6 BUN 39 H Creatinine 3.04 H Est GFR ( Amer) 20 L Est GFR (Non-Af Amer) 17 L Glucose 145 H Calcium 8.5 Triglycerides 251 H Cholesterol 203.34 H LDL Cholesterol Direct 109 H VLDL Cholesterol 50.2 H HDL Cholesterol 43 02/09/19 11:40 Throat Throat Culture - Final NORMAL GARRISON 02/08/19 02/09/19 02/11/19 06:11 06:04 07:52 Troponin I 0.020 NT-Pro-B Natriuret Pep 77958 H 14175 H Impressions: Head CT 02/08/19 05:46 IMPRESSION: NORMAL BRAIN CT WITHOUT CONTRAST. EVIDENCE OF ACUTE STROKE: NO. Chest CT 02/08/19 08:35 IMPRESSION: Pulmonary edema and anasarca. No consolidation. Guidance Fluoroscopy 02/09/19 00:00 IMPRESSION: Lumbar puncture under fluoroscopy. No immediate complication. Head MRI 02/09/19 00:00 IMPRESSION: 1. SMALL FOCAL AREA OF RESTRICTED DIFFUSION IN THE RIGHT LENTIFORM NUCLEUS (GLOBUS PALLIDUS) CONSISTENT WITH A RECENT LACUNAR INFARCT. 2. CHRONIC MICRO-VASCULAR ISCHEMIC CHANGES. EVIDENCE OF ACUTE STROKE: NO. Humerus X-Ray 02/09/19 00:00 IMPRESSION: NEGATIVE STUDY OF THE RIGHT HUMERUS. NO RADIOGRAPHIC EVIDENCE OF ACUTE INJURY. Lumbar Puncture 02/09/19 00:00 IMPRESSION: Lumbar puncture under fluoroscopy. No immediate complication. Chest X-Ray 02/11/19 00:00 IMPRESSION: Improved aeration in the right lung. Assessment and Plan - Diagnosis (1) Altered mental status Qualifiers: Altered mental status type: coma Is this a current diagnosis for this admission?: Yes Plan: Significantly improved; likely near or at baseline. Unclear etiology. CT negative MRI demonstrates small, recent, lacunar infarct (however, area would result in primarily motor deficits and not encephalopathic findings) LP revealed hazy CSF w/ nml protein, elevated glucose (secondary to hyperglycemic state); cultures and sensitives pending. Opening pressure 26. Patient is unlikely to be uremic as she actually worsened following dialysis ye sterday. HIV and RPR are negative. Will consider ACS event given patient's elevated proBNP; will obtain echocardiogram Patient is admitted to [facility] on continuous telemetry. She is was placed on IV Vancomycin and Rocephin for meningitis; have discontinued antibiotic's as meningitis is ruled out. Continue to manage hyperglycemia as below. PT/OT/ST consultations requested. Fall precautions. 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 Alexander' assistance. Nephrology has started gentle IV fluids. Monitor closely for fluid volume overload. Daily chemistries. (3) Diabetes mellitus with hyperosmolarity without hyperglycemic hyperosmolar nonketotic coma Is this a current diagnosis for this admission?: Yes Plan: PMH DM type 2 Noncompliance with medications over the weekend Presented with [facility] - BG 550 Osm 322 Anion Gap 14, no acidosis or ketosis Initially treated with insulin gtt., weaned off once patient's BG <200 Patients AMS could be secondary to hyperosmolar coma Advanced to consistent carb/prerenal diet. Accu-Cheks with Humalog for sliding scale coverage. Continue home dose Lantus. Hypoglycemia protocol. (4) HTN (hypertension) Is this a current diagnosis for this admission?: Yes Plan: PMH HTN Resume home medication regiment at the patient is tolerating p.o; clonidine, hydralazine, lisinopril, and carvedilol. IV hydralazine PRN SBP>170 IV Lopressor as needed SBP>170 or HR>120 (5) Leukocytosis Is this a current diagnosis for this admission?: Yes Plan: No source of infection at this time CXR & CT shows bilateral pleural effusions UA negative for UTI (+) Leukocytosis; 14.9->13.7-> 15.6-> 12.4 Afebrile, though hypothermic overnight (96.9 rectal) Blood cultures negative at 24 hours. Lumbar puncture negative at 48 hours. Viral and AFB pending; low suspicion Throat culture negative Antibiotics as above. (6) Acute CVA (cerebrovascular accident) Is this a current diagnosis for this admission?: Yes Plan: CT negative MRI demonstrates small, recent, lacunar infarct LDL 109, HDL 43, triglycerides 251, total cholesterol 203. A1c 8.9%. Echocardiogram pending. Patient is admitted to [facility] on continuous cardiac telemetry. Start daily aspirin and atorvastatin therapy. PT/OT/ST consultations are tested. Discharge planning is requested. (7) CHF (congestive heart failure) Is this a current diagnosis for this admission?: Yes Plan: proBNP elevated to 26k-> 22k We will obtain echocardiogram. EKG in a.m. Continue home medication regiment. Daily weights. Strict I&Os Consider cardiology consultation. - Time Time Spent with patient: 25-34 minutes Medications reviewed and adjusted accordingly: Yes Anticipated discharge: Home Within: within 48 hours
[2019-02-11] MEDS: ACETAMINOPHEN 325 MG TABLET PO PRN (18:49)
[2019-02-11] MEDS ORDERED: MAG HYDROX/AL HYDROX/SIMETH SUSP 30 ML UDCUP PO PRN (19:43)
[2019-02-11] MEDS: ASPIRIN 81 MG TABLET, CHEWABLE PO SCH (21:11)
[2019-02-11] MEDS: ATORVASTATIN CALCIUM 40 MG TABLET PO SCH (21:11)
[2019-02-11] MEDS ORDERED: NICOTINE 7 MG/24 HR PATCH.TD24 TD ONE (21:45)
[2019-02-11] MEDS: HYDRALAZINE HCL INJ/PF 20 MG/1 ML SDV IV PRN (23:56)
[2019-02-12 05:28] LABS: HEMATOCRIT 29.4 % (36.0-47.0); HEMOGLOBIN 9.7 g/dL (12.0-15.5); MEAN CORPUSCULAR HEMOGLOBIN 29.5 pg (27.0-33.4); MEAN CORPUSCULAR VOLUME 89 fl (80-97); PLATELET COUNT 336 10^3/uL (150-450); WHITE BLOOD COUNT 11.4 10^3/uL (4.0-10.5)
[2019-02-12 05:59] LABS: ANION GAP 9 (5-19); BLOOD UREA NITROGEN 44 mg/dL (7-20); CALCIUM 8.3 mg/dL (8.4-10.2); CARBON DIOXIDE 23 mmol/L (22-30); CHLORIDE 103 mmol/L (98-107); GLUCOSE 382 mg/dL (75-110); POTASSIUM 4.2 mmol/L (3.6-5.0); SODIUM 135.1 mmol/L (137-145)
[2019-02-12] MEDS: CLONIDINE HCL 0.1 MG TABLET PO SCH (06:03)
[2019-02-12] MEDS: GABAPENTIN 300 MG CAPSULE PO SCH (09:47)
[2019-02-12] MEDS: GUAIFENESIN 600 MG TABLET.SA PO SCH (09:47)
[2019-02-12] MEDS: HYDRALAZINE HCL 50 MG TABLET PO SCH (09:47)
[2019-02-12] MEDS: LISINOPRIL 10 MG TABLET PO SCH (09:47)
[2019-02-12] MEDS: ENOXAPARIN SODIUM INJ 30 MG/0.3 ML DISP.SYRIN SUBCUT SCH (09:47)
[2019-02-12] MEDS: INSULIN LISPRO 100 UNIT/ML 3 ML VIAL SUBCUT SCH (09:47)
[2019-02-12] MEDS: CALCIUM ACETATE 667 MG CAPSULE PO SCH (09:47)
[2019-02-12] MEDS: CARVEDILOL 12.5 MG TABLET PO SCH (09:47)
[2019-02-12] MEDS: INSULIN GLARGINE,HUM.REC.ANLOG 1,000 UNIT/10 ML VIAL SUBCUT SCH (09:48)
[2019-02-12] MEDS ORDERED: NICOTINE 7 MG/24 HR PATCH.TD24 TD SCH (10:00)
[2019-02-12 11:29] VITALS: BP 183/71
--- NOTE | 2019-02-12 17:52 | PDOC PROGRESS REPORT ---
Subjective Progress Note for:: 02/12/19 Subjective:: Saw the patient is morning. She was awake, alert and answering questions appropriately. She was very eager to know if she would need dialysis today or not. She has made more urine output overnight around 650 mL compared to the last 3 days. She was given some IV fluids by Dr. Alexander but needed to be stopped because she started having some edema on her face. She denies any shortness of breath. She said she is doing fine and has really no complaints. Reason For Visit: DKA/ACUTE ON CHRONIC RENAL FAILURE/ENCEPHALOPATHY Physical Exam Vital Signs: Temp Pulse Resp BP Pulse Ox 97.3 F 81 16 181/72 H 94 02/12/19 07:43 02/12/19 07:43 02/12/19 07:43 02/12/19 07:43 02/12/19 07:43 Intake & Output 02/11/19 02/12/19 02/13/19 06:59 06:59 06:59 Intake Total 1254 540 Output Total 375 650 Balance 879 -110 Weight 67 kg 68.4 kg Exam: General appearance: PRESENT: no acute distress, cooperative, well-developed, well-nourished Head exam: PRESENT: atraumatic, normocephalic Eye exam: PRESENT: conjunctiva slightly pale, PERRLA. ABSENT: scleral icterus Neck exam: ABSENT: JVD Respiratory exam: PRESENT: Normal breath sounds. ABSENT: crackles, rales, rhonchi, unlabored, wheezes Cardiovascular exam: PRESENT: Regular rate rhythm -+S1, +S2. ABSENT: diastolic murmur, systolic murmur GI/Abdominal exam: PRESENT: normal bowel sounds, soft. ABSENT: guarding, mass, tenderness Extremities exam: ABSENT: No edema Neurological exam: PRESENT: alert, awake, oriented to person, place and time. Skin exam: PRESENT: dry, warm, Cardiovascular exam: PRESENT: +S1, +S2 GI/Abdominal exam: PRESENT: normal bowel sounds, soft. ABSENT: distended, organomegaly, tenderness Results Laboratory Results: 02/12/19 05:01 02/12/19 05:01 02/11/19 02/11/19 02/12/19 07:52 09:27 05:01 WBC 12.4 H 11.4 H RBC 3.22 L 3.30 L Hgb 9.5 L 9.7 L Hct 28.8 L 29.4 L MCV 89 89 MCH 29.5 29.5 MCHC 33.0 33.0 RDW 15.3 H 15.0 H Plt Count 385 336 Sodium 137.4 Potassium 3.3 L Chloride 105 Carbon Dioxide 26 Anion Gap 6 BUN 39 H Creatinine 3.04 H Est GFR ( Amer) 20 L Est GFR (Non-Af Amer) 17 L Glucose 145 H Calcium 8.5 Triglycerides 251 H Cholesterol 203.34 H LDL Cholesterol Direct 109 H VLDL Cholesterol 50.2 H HDL Cholesterol 43 02/12/19 05:01 WBC RBC Hgb Hct MCV MCH MCHC RDW Plt Count Sodium 135.1 L Potassium 4.2 Chloride 103 Carbon Dioxide 23 Anion Gap 9 BUN 44 H Creatinine 2.73 H Est GFR ( Amer) 23 L Est GFR (Non-Af Amer) 19 L Glucose 382 H Calcium 8.3 L Triglycerides Cholesterol LDL Cholesterol Direct VLDL Cholesterol HDL Cholesterol 02/09/19 14:22 Cerebral Spinal Fluid - Csf Gram Stain - Final 02/09/19 14:22 Cerebral Spinal Fluid - Csf CSF Culture - Final NO GROWTH 3 DAYS 02/09/19 11:40 Throat Throat Culture - Final NORMAL GARRISON 02/08/19 02/09/19 02/11/19 06:11 06:04 07:52 Troponin I 0.020 NT-Pro-B Natriuret Pep 73028 H 59959 H Impressions: Head CT 02/08/19 05:46 IMPRESSION: NORMAL BRAIN CT WITHOUT CONTRAST. EVIDENCE OF ACUTE STROKE: NO. Chest CT 02/08/19 08:35 IMPRESSION: Pulmonary edema and anasarca. No consolidation. Guidance Fluoroscopy 02/09/19 00:00 IMPRESSION: Lumbar puncture under fluoroscopy. No immediate complication. Head MRI 02/09/19 00:00 IMPRESSION: 1. SMALL FOCAL AREA OF RESTRICTED DIFFUSION IN THE RIGHT LENTIFORM NUCLEUS (GLOBUS PALLIDUS) CONSISTENT WITH A RECENT LACUNAR INFARCT. 2. CHRONIC MICRO-VASCULAR ISCHEMIC CHANGES. EVIDENCE OF ACUTE STROKE: NO. Humerus X-Ray 02/09/19 00:00 IMPRESSION: NEGATIVE STUDY OF THE RIGHT HUMERUS. NO RADIOGRAPHIC EVIDENCE OF ACUTE INJURY. Lumbar Puncture 02/09/19 00:00 IMPRESSION: Lumbar puncture under fluoroscopy. No immediate complication. Chest X-Ray 02/11/19 00:00 IMPRESSION: Improved aeration in the right lung. Assessment & Plan - Diagnosis (1) CKD (chronic kidney disease) stage 4, GFR 15-29 ml/min Is this a current diagnosis for this admission?: Yes Plan: Patient is making more urine output compared to the past 3 days. Her kidney function is actually better today compared to yesterday with a little bit of IV fluids. Her electrolytes are fine. Clinically she does not really have much swelling on her legs nor does she appear to have pulmonary congestion clinically. I do not think the patient needs hemodialysis today. I think patient just needs to be reevaluated as an outpatient if she needs further outpatient hemodialysis treatment. She is going to need to be on diuretics to prevent further fluid overload. From nephrology standpoint I think the patient can be discharged home to follow- up next week to her electrical assembler, Dr. Sherwood. (2) CHF (congestive heart failure) Is this a current diagnosis for this admission?: Yes Plan: Patient is to be followed up by her limnologist for continuous management. (3) Nephrotic syndrome Is this a current diagnosis for this admission?: Yes Plan: Her urine protein to creatinine ratio was 32.9 g. This contributes to the patient's anasarca although currently it seems to be well-controlled. (5) Altered mental status Qualifiers: Altered mental status type: coma Is this a current diagnosis for this admission?: Yes Plan: Resolved. - Time Time with patient: 15-25 minutes
--- NOTE | 2019-02-12 22:39 | EKG REPORT ---
SEVERITY:- BORDERLINE ECG - SINUS RHYTHM LOW VOLTAGE THROUGHOUT BORDERLINE T ABNORMALITIES, ANT-LAT LEADS : Confirmed by: Rach Dasilva 12-Feb-2019 22:38:47
--- NOTE | 2019-02-13 20:57 | PDOC DISCHARGE SUMMARY ---
General - Admit/Disc Date/PCP Admission Date/Primary Care Provider: 02/08/19 12:39 Discharge Date: 02/12/19 - Discharge Diagnosis (1) Altered mental status Is this a current diagnosis for this admission?: Yes Summary: Resolved; patient is now at baseline per family. Likely secondary to acute CVA. CT negative MRI demonstrates small, recent, lacunar infarct (however, area would result in primarily motor deficits and not encephalopathic findings) LP revealed hazy CSF w/ nml protein, elevated glucose (secondary to hyperglycemic state); cultures and sensitives pending. Opening pressure 26. HIV and RPR are negative. Patient was admitted to [facility] on continuous telemetry. She was placed on IV Vancomycin and Rocephin for empiric coverage of meningitis (ruled out); have discontinued antibiotic's as meningitis is ruled out. PT/OT/ST consultations requested; have recommended home health physical therapy which has been arranged. Patient is discharged to home in stable condition. She is advised to continue medications as prescribed, eat a low sodium/prerenal diet, maintain adequate glucose and blood pressure control, and STOP smoking. She is instructed to follow up with her primary care provided within 1 week and with her established inpatient services director as scheduled. She is advised to return to the emergency department as needed for concerning symptoms. (2) CKD (chronic kidney disease) stage 4, GFR 15-29 ml/min Is this a current diagnosis for this admission?: Yes Summary: History of chronic kidney disease, unknown inpatient services director Patient receives hemodialysis MWF; received dialysis x1 while admitted. Nephrology is consulted; appreciate Dr. Alexander' assistance. Recommend outpatient follow up with established inpatient services director as previously scheduled. (3) Diabetes mellitus with hyperosmolarity without hyperglycemic hyperosmolar nonketotic coma Is this a current diagnosis for this admission?: Yes Summary: PMH DM type 2 Presented with HHNK - BG 550 Osm 322 Anion Gap 14, no acidosis or ketosis; secondary to medication noncompliance. Initially treated with insulin gtt, weaned off once patient's BG <200 Glucose control achieved prior to discharge. Recommend the patient continue consistent carb/prerenal diet and outpatient medication regiment. (4) HTN (hypertension) Is this a current diagnosis for this admission?: Yes Summary: PMH HTN Continue home medication regiment of clonidine, hydralazine, lisinopril, and carvedilol. (5) Leukocytosis Is this a current diagnosis for this admission?: Yes Summary: No source of infection at this time; likely secondary to acute CVA CXR & CT shows bilateral pleural effusions UA negative for UTI (+) Leukocytosis; 14.9->13.7-> 15.6-> 12.4-> 11.4 Remains afebrile. Blood cultures negative at 72 hours. Lumbar puncture negative at 3 days. Viral and AFB pending; low suspicion Throat culture negative Patient received antibiotic coverage of IV Rocephin and Vancomycin. (6) Acute CVA (cerebrovascular accident) Is this a current diagnosis for this admission?: Yes Summary: CT negative MRI demonstrates small, recent, lacunar infarct LDL 109, HDL 43, triglycerides 251, total cholesterol 203. A1c 8.9%. Echocardiogram report pending at time of dicatation. Patient was admitted to [facility] on continuous cardiac telemetry. Started on daily aspirin and atorvastatin therapy. PT/OT/ST consultations obtained; recommend home health physical therapy. (7) CHF (congestive heart failure) Is this a current diagnosis for this admission?: Yes Summary: proBNP elevated to 26k-> 22k Echocardiogram is pending at time of dictation. EKG demonstrates NSR. Recommend patient continue home medication regiment and daily weights. Consider outpatient cardiology consultation. - Additional Information Discharge Diet: Diabetic, Other (Comments) - Pre-renal diet Discharge Activity: Activity As Tolerated, Balance Activity w/Rest, Weigh Daily Prescriptions: Aspirin [Aspirin 81 mg Chewable Tablet] 81 mg PO QHS #90 tab.chew Atorvastatin Calcium [Lipitor 40 mg Tablet] 40 mg PO QHS #30 tablet Blood-Glucose Meter [Blood Glucose Monitoring] 1 each ACHS #1 kit Bupropion HCl [Wellbutrin 75 Mg Tablet] 75 mg PO DAILY #30 tablet Insulin Aspart [Novolog Flexpen] 5 unit SUBCUT MEALS #1 insuln.pen Insulin Lispro [Humalog Irving Kwikpen] 1 - 12 unit SQ ACHS PRN #1 ins.pen.hf PRN Reason: Nicotine [Nicoderm 7 mg/24 Hr Transdermal Patch] 1 each TD DAILY #30 patch.td24 Home Medications: Calcium Acetate [Phoslo 667 mg Capsule] 1,334 mg PO MEALS 02/08/19 Carvedilol [Coreg 25 mg Tablet] 25 mg PO Q12 02/08/19 Clonidine HCl [Catapres 0.1 mg Tablet] 0.1 mg PO Q8 02/08/19 Duloxetine HCl [Cymbalta 30 mg Capsule.dr] 30 mg PO Q12 02/08/19 Furosemide [Lasix 40 mg Tablet] 40 mg PO BID@08,1300 02/08/19 Gabapentin [Neurontin 300 mg Capsule] 300 mg PO Q12 02/08/19 Hydralazine HCl [Apresoline 50 mg Tablet] 100 mg PO Q12 02/08/19 Insulin Glargine,Hum.rec.anlog [Lantus Insulin 100 Unit/1 ml 10 ml] 15 unit SUBCUT DAILY 02/08/19 Lisinopril [Prinivil 10 mg Tablet] 20 mg PO DAILY 02/08/19 Promethazine HCl [Phenergan 25 mg Tablet] 12.5 mg PO Q6HP PRN 02/08/19 Acetaminophen [Tylenol 325 mg Tablet] 650 mg PO Q6HP PRN tablet 02/12/19 Aspirin [Aspirin 81 mg Chewable Tablet] 81 mg PO QHS #90 tab.chew 02/12/19 Atorvastatin Calcium [Lipitor 40 mg Tablet] 40 mg PO QHS #30 tablet 02/12/19 Blood-Glucose Meter [Blood Glucose Monitoring] 1 each ACHS #1 kit 02/12/19 Bupropion HCl [Wellbutrin 75 Mg Tablet] 75 mg PO DAILY #30 tablet 02/12/19 Insulin Aspart [Novolog Flexpen] 5 unit SUBCUT MEALS #1 insuln.pen 02/12/19 Insulin Lispro [Humalog Insulin (Lispro) 100 unit/mL] 0 - 12 unit SUBCUT ACHS unit 02/12/19 Insulin Lispro [Humalog Irving Kwikpen] 1 - 12 unit SQ ACHS PRN #1 ins.pen.hf 02/12/19 Nicotine [Nicoderm 7 mg/24 Hr Transdermal Patch] 1 each TD DAILY #30 patch.td24 02/12/19 History of Present Illness History of Present Illness: Per H&P by ALEXUS Agosto: LIONEL WICK is a 48 year old female with a PMH of CVA x2, ESRD (MWF), DM, HTN, neuropathy. She was brought to the emergency department by her friend for altered mental status. According to the patient's friend, Racquel, the patient was last seen at her baseline 2 nights ago. Yesterday, Racquel attempted to wake up the patient but she was lethargic and refused to get out of bed. Since the patient will get out of bed and was not eating, Racquel did not give the patient her insulin. When the patient would not wake up this morning, this prompted Racquel to call EMS. Of note, the patient has recently been in and out of the hospital, always treated at [facility]. She has been unable to stay out of the hospital for more than 30 days at a time. She is typically admitted for uncontrolled diabetes or hemodialysis noncompliance. Additionally, she recently had her second stroke and was hospitalized at [facility]. Upon arrival to the emergency department, the patient is very combative. She is not able to answer questions appropriately. BP 180/92 HR 92 T 97.5 SPO2 99. EKG shows NSR, no evidence of infarction or ischemia. Head CT WNL. Laboratory studies reveal leukocytosis (WBC 14), hyperglycemia (BG 550), mild hyponatremia (NA 134), elevated serum osmolality (OSM 322), elevated creatinine (2.9 unknown baseline). CXR showed b/l pleural effusions, CT chest (non-con) was obtained and showed small bilateral pleural effusions. The patient was started on an insulin gtt for her HHNK. ED MD confirmed with inpatient services director, Dr. Alexander, that the patient would be able to receive dialysis today. Physical Exam Vital Signs: Temp Pulse Resp BP Pulse Ox 97.3 F 81 16 181/72 H 94 02/12/19 07:43 02/12/19 07:43 02/12/19 07:43 02/12/19 07:43 02/12/19 07:43 Intake & Output 02/11/19 02/12/19 02/13/19 06:59 06:59 06:59 Intake Total 1254 540 Output Total 375 650 Balance 879 -110 Weight 67 kg 68.4 kg General appearance: PRESENT: no acute distress, well-developed, well-nourished, other - Anasarca.. ABSENT: cooperative Head exam: PRESENT: atraumatic, normocephalic Eye exam: PRESENT: conjunctiva pink, EOMI, PERRLA. ABSENT: scleral icterus Ear exam: PRESENT: normal external ear exam Mouth exam: PRESENT: moist, tongue midline Teeth exam: PRESENT: poor dentation Neck exam: ABSENT: carotid bruit, JVD, lymphadenopathy, thyromegaly Respiratory exam: PRESENT: clear to auscultation adriana, symmetrical, unlabored. ABSENT: rales, rhonchi, wheezes Cardiovascular exam: PRESENT: RRR, +S1, +S2. ABSENT: diastolic murmur, rubs, systolic murmur Pulses: PRESENT: normal dorsalis pedis pul Vascular exam: PRESENT: normal capillary refill GI/Abdominal exam: PRESENT: normal bowel sounds, soft. ABSENT: distended, guarding, mass, organolmegaly, rebound, tenderness Rectal exam: PRESENT: deferred Extremities exam: PRESENT: full ROM. ABSENT: calf tenderness, clubbing, pedal edema Neurological exam: PRESENT: alert, awake, oriented to person, oriented to place, oriented to time, oriented to situation, CN II-XII grossly intact. ABSENT: motor sensory deficit Psychiatric exam: PRESENT: agitated, appropriate affect, normal mood. ABSENT: homicidal ideation, suicidal ideation Skin exam: PRESENT: dry, intact, warm. ABSENT: cyanosis, rash Results Laboratory Results: 02/12/19 05:01 02/12/19 05:01 02/12/19 02/12/19 05:01 05:01 WBC 11.4 H RBC 3.30 L Hgb 9.7 L Hct 29.4 L MCV 89 MCH 29.5 MCHC 33.0 RDW 15.0 H Plt Count 336 Sodium 135.1 L Potassium 4.2 Chloride 103 Carbon Dioxide 23 Anion Gap 9 BUN 44 H Creatinine 2.73 H Est GFR ( Amer) 23 L Est GFR (Non-Af Amer) 19 L Glucose 382 H Calcium 8.3 L 02/09/19 14:22 Cerebral Spinal Fluid - Csf Gram Stain - Final 02/09/19 14:22 Cerebral Spinal Fluid - Csf CSF Culture - Final NO GROWTH 3 DAYS 02/09/19 11:40 Throat Throat Culture - Final NORMAL GARRISON 02/08/19 02/09/19 02/11/19 06:11 06:04 07:52 Troponin I 0.020 NT-Pro-B Natriuret Pep 31146 H 38060 H Impressions: Head CT 02/08/19 05:46 IMPRESSION: NORMAL BRAIN CT WITHOUT CONTRAST. EVIDENCE OF ACUTE STROKE: NO. Chest CT 02/08/19 08:35 IMPRESSION: Pulmonary edema and anasarca. No consolidation. Guidance Fluoroscopy 02/09/19 00:00 IMPRESSION: Lumbar puncture under fluoroscopy. No immediate complication. Head MRI 02/09/19 00:00 IMPRESSION: 1. SMALL FOCAL AREA OF RESTRICTED DIFFUSION IN THE RIGHT LENTIFORM NUCLEUS (GLOBUS PALLIDUS) CONSISTENT WITH A RECENT LACUNAR INFARCT. 2. CHRONIC MICRO-VASCULAR ISCHEMIC CHANGES. EVIDENCE OF ACUTE STROKE: NO. Humerus X-Ray 02/09/19 00:00 IMPRESSION: NEGATIVE STUDY OF THE RIGHT HUMERUS. NO RADIOGRAPHIC EVIDENCE OF ACUTE INJURY. Lumbar Puncture 02/09/19 00:00 IMPRESSION: Lumbar puncture under fluoroscopy. No immediate complication. Chest X-Ray 02/11/19 00:00 IMPRESSION: Improved aeration in the right lung. Qualifiers - * PATIENT BEING DISCHARGED WITH ANY OF THE FOLLOWING DIAGNOSIS: No Acute Heart Failure Is this a Heart Failure Patient?: No Plan Discharge Plan: Follow up with primary care provider within 1 week. Follow up with Dr. Alexander, inpatient services director, as scheduled. Eat a low sodium, consistent carb diet. Take medications as scheduled. Return to the emergency department as needed for concerning symptoms. Time Spent: Greater than 30 Minutes
--- NOTE | 2019-02-14 12:53 | XCELERA REPORT ---
[address] [address] Transthoracic Echocardiogram Report Name: LIONEL WICK Age: 48 yrs Gender: Female : 1970 Patient Status: Inpatient Patient Location: [address] [place] [address] Study Date: 02/12/2019 09:20 AM Height: 66 in Weight: 147 lb BSA: 1.8 m2 Procedure: A two-dimensional transthoracic echocardiogram with color flow and Doppler was performed. Images were not obtained from all of the standard acoustic windows due to the limited scope of the study. Reason For Study: CHF History: CHF. Ordering Physician: RASHAUN DOUGLAS Performed By: Deepa Bundy Interpretation Summary The left ventricle is normal in size. There is normal left ventricular wall thickness. No True apical 2 chamber views obtained.Hence cannot comment on the apical anterior , the basal anterior, the basal inferior and apical inferior douglas.The mid anterior , the mid inferior and the rest of the LV douglas contract normally. .Normal LVEF is normal and is greater than 65% in the limited views. Doppler measurements suggest impaired left ventricular relaxation, which is associated with grade I/IV or mild diastolic dysfunction There is no thrombus. No ASD,VSD,or PFO seen. The right atrium is normal. The left atrial size is normal. There is no evidence of mitral valve prolapse. There is no mitral valve stenosis. There is a mild amount of mitral regurgitation There is no aortic valvular vegetation. There is no aortic valve stenosis There is no LVOT obstruction. No aortic regurgitation is present. There is no tricuspid stenosis. There is a trace amount of tricuspid regurgitation Unable to calculate RVSP due to insufficient TR jet. There is no pulmonic valvular stenosis. There is no pulmonic valvular regurgitation. The aortic root is normal size. There is no pericardial effusion. MMode/2D Measurements & Calculations RVDd: 2.6 cm LVIDd: 5.0 cm FS: 39.5 % Ao root diam: 2.8 cm IVSd: 0.77 cm LVIDs: 3.0 cm EDV(Teich): LVPWd: 1.0 cm 115.6 ml Ao root area: ESV(Teich): 34.9 ml6.3 cm2 EF(Teich): 69.8 % EDV(MOD-sp4): SV(MOD-sp4): 94.3 ml 64.3 ml ESV(MOD-sp4): 30.1 ml EF(MOD-sp4): 68.1 % Doppler Measurements & Calculations MV E max emir: MV dec slope: Ao V2 max: LV V1 max P.9 cm/sec 123.2 cm/sec 3.2 mmHg MV A max emir: 725.7 cm/sec2 Ao max PG: LV V1 max: 100.4 cm/sec MV dec time: 0.13 sec 6.1 mmHg 90.1 cm/sec MV E/A: 0.92 LV dP/dt: 06568 mmHg/s PA V2 max: 140.5 cm/sec PA max P.9 mmHg Left Ventricle The left ventricle is normal in size. There is normal left ventricular wall thickness. No True apical 2 chamber views obtained.Hence cannot comment on the apical anterior , the basal anterior, the basal inferior and apical inferior douglas.The mid anterior , the mid inferior and the rest of the LV douglas contract normally. .Normal LVEF is normal and is greater than 65% in the limited views. Doppler measurements suggest impaired left ventricular relaxation, which is associated with grade I/IV or mild diastolic dysfunction. There is no thrombus. No ASD,VSD,or PFO seen. Right Ventricle The right ventricle is normal in size and function. Atria The right atrium is normal. The left atrial size is normal. Mitral Valve There is no evidence of mitral valve prolapse. There is no vegetation seen on the mitral valve. There is no mitral valve stenosis. There is a mild amount of mitral regurgitation. Aortic Valve There is no aortic valvular vegetation. There is no aortic valve stenosis. There is no LVOT obstruction. No aortic regurgitation is present. Tricuspid Valve There is no tricuspid stenosis. There is a trace amount of tricuspid regurgitation. Unable to calculate RVSP due to insufficient TR jet. Pulmonic Valve There is no pulmonic valvular stenosis. There is no pulmonic valvular regurgitation. Great Vessels The aortic root is normal size. Effusions There is no pericardial effusion. : RASHAUN DOUGLAS > Sania Paniagua
== END 2019-02-12 13:09 | disposition home or self-care (01) | DRG 637 ==
LOC: ER 05:39 → EH 12:39 → EDBD 12:39 → 3S 17:53
PROVIDERS: ADMIT Internal Medicine; ATTEND Internal Medicine
PROC: 009U3ZX Drainage of Spinal Canal, Percutaneous Approach, Diagnostic (ICD-10-PCS; 2019-02-09)
PROC: B01B1ZZ Fluoroscopy of Spinal Cord using Low Osmolar Contrast (ICD-10-PCS; 2019-02-09)
PROC: 3E0F73Z Introduction of Anti-inflammatory into Respiratory Tract, Via Natural or Artificial Opening (ICD-10-PCS; principal; 2019-02-11)
DX: E11.01 Type 2 diabetes mellitus with hyperosmolarity with coma (principal); I63.81 Other cerebral infarction due to occlusion or stenosis of small artery; N18.6 End stage renal disease; N17.9 Acute kidney failure, unspecified; I13.2 Hypertensive heart and chronic kidney disease with heart failure and with stage 5 chronic kidney disease, or end stage renal disease; N25.81 Secondary hyperparathyroidism of renal origin; E11.22 Type 2 diabetes mellitus with diabetic chronic kidney disease; I50.9 Heart failure, unspecified; D63.1 Anemia in chronic kidney disease; E11.21 Type 2 diabetes mellitus with diabetic nephropathy; E11.40 Type 2 diabetes mellitus with diabetic neuropathy, unspecified; F17.210 Nicotine dependence, cigarettes, uncomplicated; Z79.4 Long term (current) use of insulin; Z79.899 Other long term (current) drug therapy; Z99.2 Dependence on renal dialysis; Z78.1 Physical restraint status; Z79.82 Long term (current) use of aspirin; Z86.73 Personal history of transient ischemic attack (TIA), and cerebral infarction without residual deficits; Z91.15 Patient's noncompliance with renal dialysis; Z88.2 Allergy status to sulfonamides; Z88.0 Allergy status to penicillin; Z91.013 Allergy to seafood; Z91.14 Patient's other noncompliance with medication regimen
CPT/HCPCS: 36415; 36600; 51702; 62270; 70450; 70551; 71045; 71250; 77003; 80048; 80053; 80061; 80307; 81001; 82140; 82570; 82803; 82945; 82962; 83036; 83605; 83735; 83880; 83930; 83970; 84100; 84156; 84157; 84439; 84443; 84481; 84484; 85025; 85027; 85610; 85730; 86592; 86701; 87015; 87040; 87070; 87116; 87205; 87206; 87252; 87880; 89050; 93005; 93010; 93306; 96360; 96372; 99291; J0360; J0696; J1630; J1650; J1815; J2060; J3230; J3370; J3486; J3490; J7040; J7060